=== PATIENT | male | born 1955 | race Caucasian/White ===

== ENCOUNTER 2017-10-26 06:39 | Day surgery (SDC) | payer OTHER ==
[2017-10-26] MEDS ORDERED: Lactated Ringers 1,000 ML IV SCH (07:00)
[2017-10-26] MEDS ORDERED: Propofol 200 MG/20 ML SDV ONE (08:32)
[2017-10-26] MEDS ORDERED: fentaNYL 100 MCG/2 ML SDV ONE (08:32)
[2017-10-26] MEDS ORDERED: Midazolam 1 MG/ML 2 ML SDV ONE (08:32)
--- NOTE | 2017-10-26 11:10 | OR ---
DATE OF PROCEDURE: 10/26/2017 PREOPERATIVE DIAGNOSIS: History of colon polyps. POSTOPERATIVE DIAGNOSES: Small transverse colon polyp, medium-sized cecal polyp, history of colon polyps. PROCEDURE PERFORMED: Colonoscopy to the cecum with biopsy resection of transverse colon polyp and then snare cautery polypectomy of cecal polyp. SURGEON: Nino Macdonald MD ANESTHESIA: IV anesthesia with monitored anesthesia care. INDICATION: This 62-year-old white male, former [employer] [place] [employer], is referred by the [facility] for a colonoscopy. He has had at least 2 prior colonoscopies, one of which had polyps in it. I counseled him for the procedure, including risks and alternatives, and he gave his informed consent to proceed. DESCRIPTION OF PROCEDURE: The patient was placed in the left lateral decubitus position. IV anesthesia was administered by the Anesthesia Service. Time-out was held. A rectal exam was performed, which was unremarkable. The flexible video Olympus colonoscope was introduced through his anus, up his rectum, out his colon, all way to the cecum. En route, in the transverse colon, we saw a small polyp, which was removed with a few bites of biopsy forceps. Once the cecum was reached, we encountered a polyp in the cecum. We initially biopsied this. This was too large to remove using this technique. A snare was passed about its base, it was elevated up away from the bowel wall and amputated as electrocautery was applied. We grasped the polyp with the biopsy forceps and brought it out of the cecum, so that we could aspirate up through the scope which was done. It was captured in a polyp trap. The scope was then withdrawn further with no other lesions noted. The scope was retroflexed in the rectum with the distal rectum appearing unremarkable. The scope was straightened and removed. He tolerated the procedure well. Nino Macdonald MD /[id number]
== END 2017-10-26 10:44 | disposition home or self-care (01) ==
LOC: JP.SDS 06:39
PROVIDERS: ATTEND Surgery
DX: Z12.11 Encounter for screening for malignant neoplasm of colon (principal); Z86.010 Personal history of colon polyps; D12.0 Benign neoplasm of cecum; K63.5 Polyp of colon; G47.33 Obstructive sleep apnea (adult) (pediatric); E11.9 Type 2 diabetes mellitus without complications; E66.9 Obesity, unspecified; Z88.8 Allergy status to other drugs, medicaments and biological substances
CPT/HCPCS: 45380; 45385; J2250; J2704; J3010; J7120; 88305

== ENCOUNTER 2020-10-10 06:57 | Observation (INO) | payer OTHER ==
[2020-10-10] MEDS ORDERED: Midazolam 1 MG/ML 2 ML SDV ONE (07:12)
[2020-10-10] MEDS ORDERED: fentaNYL 100 MCG/2 ML SDV ONE (07:12)
[2020-10-10] MEDS ORDERED: Propofol 200 MG/20 ML SDV ONE ×2 (07:12→08:50)
[2020-10-10] MEDS ORDERED: Dextrose 5%-Lactated Ringers 1,000 ML IV SCH (07:30)
--- NOTE | 2020-10-10 12:03 | CRLCT ---
Indication: Post colonoscopy abdominal pain. Technique: Multiple contiguous axial images were obtained from the lung bases through the symphysis pubis without intravenous contrast enhancement. Please note that all CT scans at this facility use dose modulation, iterative reconstruction, and/or weight-based dosing when appropriate to reduce radiation dose to as low as reasonably achievable. Comparison: None Findings: The heart is normal in size. No pericardial effusion is identified. Coronary artery calcifications are identified. The aorta is normal in caliber. The lung bases are clear. The unenhanced liver, spleen, pancreas, adrenals and kidneys are normal. No intrahepatic biliary ductal dilatation is identified. No hydronephrosis is identified. In the pelvis, thickening of the wall of the urinary bladder is identified. The prostate gland is enlarged. Paragraph The small and large bowel are normal in caliber. No free air or free fluid is identified within the abdomen or pelvis. No lytic or blastic lesions of the spine are identified. Impression: No acute findings of the abdomen or pelvis. Please note that all CT scans at this facility use dose modulation, iterative reconstruction, and/or weight-based dosing when appropriate to reduce radiation dose to as low as reasonably achievable. Dictated by Raven Carvajal MD @ Oct 10 2020 11:57AM Signed by Dr. Raven Carvajal @ Oct 10 2020 12:02PM
--- NOTE | 2020-10-10 14:55 | PCM.HP.2 ---
H&P History of Present Illness - General Date of Service: 10/10/20 Admit Problem/Dx: Admission Diagnosis/Problem Admission Diagnosis/Problem Fever Source of Information: Patient, Family, Provider, RN Notes Reviewed History Limitations: Reports: No Limitations - History of Present Illness Initial Comments - Free Text/Narative: Mr. Pang is a 65-year-old gentleman who was admitted as a direct admission to observation status through the critical care technician unit. Yesterday he received his second COVID-19 vaccination and also underwent a colonoscopy prep for colonoscopy today. Colonoscopy was performed and he did have a polyp removed. After the colonoscopy he experienced significant abdominal pain, CT scan of the abdomen was obtained and showed no evidence of free air or perforation. No other significant abnormalities were seen on CT scan. Following this he did have significant temperature elevation to 101.6 degrees. Laboratory tests have been obtained and he was found to have a mild to moderate elevation in white blood cell count as well as a mild elevation in CRP. Procalcitonin level was within normal range, as was the lactic acid level. Chest x-ray showed atelectasis but no evidence of obvious infiltrate and urinalysis is clear with no evidence of infection. On history and physical examination he denies any other symptoms of localized infection. He has noted headache associated with myalgias and some generalized weakness. Abdomen Pain Score (Numeric/FACES): 2 Muscle Aches Pain Score (Numeric/FACES): 4 - Related Data Allergies/Adverse Reactions: Allergies Allergy/AdvReac Type Severity Reaction Status Date / Time lisinopril Allergy Cannot Verified 10/10/20 07:20 Remember Home Medications: Home Meds Cholecalciferol (Vitamin D3) [Vitamin D3] 400 units PO DAILY 10/24/17 [History] Insulin Glarg,Human.Rec.Analog [Lantus Solostar] 54 units SUBCUT QPM 10/24/17 [History] Losartan [Cozaar] 100 mg PO BEDTIME 10/24/17 [History] Oxybutynin Chloride 5 mg PO BID 10/24/17 [History] Sertraline HCl 25 mg PO DAILY 10/24/17 [History] hydroCHLOROthiazide [Hydrochlorothiazide] 25 mg PO DAILY 10/24/17 [History] metFORMIN HCl [Metformin HCl] 1,000 mg PO BID 10/24/17 [History] Fluocinonide [Lidex 0.05% Top Soln] 1 applic TOP BID 10/07/20 [History] Insuln Asp Prot/Insulin Aspart [NovoLOG Mix 70-30] 11 - 24 units SQ BID 10/07/20 [History] Ketoconazole [Nizoral 2% Crm] 1 applic TOP .BIWEEKLY 10/07/20 [History] Terbinafine [LamISIL AT 1% Crm] 1 applic TOP WEEKLY 10/07/20 [History] Terbinafine [LamISIL] 250 mg PO WEEKLY 10/07/20 [History] fluorouraciL [Efudex 5% Cream] 1 applic TOP DAILY 10/07/20 [History] metroNIDAZOLE [Metrocream] 1 applic TOP BID 10/07/20 [History] Alogliptin Benzoate [Alogliptin] 12.5 mg PO DAILY 10/10/20 [History] Past Medical History HEENT History: Reports: Hard of Hearing Cardiovascular History: Reports: High Cholesterol, Hypertension Respiratory History: Reports: None Gastrointestinal History: Reports: Colon Polyp Genitourinary History: Reports: Prostate Disorder Musculoskeletal History: Reports: Fracture Neurological History: Reports: None Psychiatric History: Reports: Depression Endocrine/Metabolic History: Reports: Diabetes, Type II, IDDM, Obesity/BMI 30+ Hematologic History: Reports: None Immunologic History: Reports: None Oncologic (Cancer) History: Reports: Prostate Dermatologic History: Reports: None - Infectious Disease History Infectious Disease History: Reports: Chicken Pox, Measles, Mumps - Past Surgical History Head Surgeries/Procedures: Reports: None HEENT Surgical History: Reports: Other (See Below) Other HEENT Surgeries/Procedures: left ear surgery Cardiovascular Surgical History: Reports: None Respiratory Surgical History: Reports: None GI Surgical History: Reports: Colonoscopy, Hernia, Abdominal Male Surgical History: Reports: None Endocrine Surgical History: Reports: None Neurological Surgical History: Reports: None Musculoskeletal Surgical History: Reports: None Oncologic Surgical History: Reports: None Dermatological Surgical History: Reports: Skin Biopsy Social & Family History - Family History Family Medical History: No Pertinent Family History - Tobacco Use Tobacco Use Status *Q: Never Tobacco User - Caffeine Use Caffeine Use: Reports: Coffee - Recreational Drug Use Recreational Drug Use: No H&P Review of Systems - Review of Systems: Review Of Systems: See Below General: Reports: Fever, Malaise, Weakness, Fatigue, Decreased Appetite. Denies: Chills HEENT: Reports: Ear Pain, Headaches, Sore Throat. Denies: Sinus Congestion, Vi sual Changes Pulmonary: Reports: No Symptoms Cardiovascular: Reports: No Symptoms Gastrointestinal: Reports: Abdominal Pain, Distension. Denies: Constipation, Diarrhea, Difficulty Swallowing, Hematemesis, Hematochezia, Melena, Nausea, Vomiting Genitourinary: Reports: No Symptoms Musculoskeletal: Reports: Muscle Pain. Denies: Neck Pain, Back Pain, Joint Pain, Joint Swelling Skin: Reports: No Symptoms Psychiatric: Reports: No Symptoms Neurological: Reports: No Symptoms Hematologic/Lymphatic: Reports: No Symptoms Immunologic: Reports: No Symptoms Exam - Exam Exam: See Below - Vital Signs Vital Signs: Last Vital Signs Temp 100.2 F 10/10/20 13:35 Pulse 77 10/10/20 13:35 Resp 16 10/10/20 13:35 BP 131/66 10/10/20 13:35 Pulse Ox 96 10/10/20 13:35 Weight: 259 lb 6.4 oz - Exam Quality Assessment: DVT Prophylaxis General: Alert, Oriented, Cooperative, Mild Distress HEENT: Conjunctiva Clear, Hearing Intact, Normal Nasal Septum, Posterior Pharynx Clear, Pupils Equal. No: Mucosa Moist & [place] Neck: Supple, Trachea Midline, +2 Carotid Pulse wo Bruit Lungs: Clear to Auscultation, Normal Respiratory Effort Cardiovascular: Regular Rate, Regular Rhythm, Normal S1, Normal S2. No: Systolic Murmur, Diastolic Murmur GI/Abdominal Exam: Soft, No Organomegaly, Distended, Tender. No: Guarding, Rigid, Rebound Back Exam: Normal Inspection, Full Range of Motion Extremities: Non-Tender, No Pedal Edema Skin: Warm, Dry, Intact Neurological: Cranial Nerves Intact, Strength Equal Bilateral, Normal Speech, Normal Tone, Sensation Intact. No: Focal Deficit Neuro Extensive - Mental Status: Alert, Oriented x3, Normal Mood/Affect, Normal Cognition, Memory Intact - Patient Data Lab Results Last 24 hrs: Laboratory Results - last 24 hr 10/10/20 10/10/20 10/10/20 Range/Units 13:00 13:33 13:33 WBC 13.4 H (4.5-11.0) K/uL RBC 5.10 (4.30-5.90) M/uL Hgb 14.4 (12.0-15.0) g/dL Hct 44.6 (40.0-54.0) % MCV 88 (80-98) fL MCH 28 (27-31) pg MCHC 32 (32-36) % Plt Count 204 (150-400) K/uL Neut % (Auto) 90 H (36-66) % Lymph % (Auto) 3 L (24-44) % [place] % (Auto) 7 H (2-6) % Eos % (Auto) 0 L (2-4) % Baso % (Auto) 0 (0-1) % Sodium (140-148) mmol/L Potassium (3.6-5.2) mmol/L Chloride (100-108) mmol/L Carbon Dioxide (21-32) mmol/L Anion Gap (5.0-14.0) mmol/L BUN (7-18) mg/dL Creatinine (0.8-1.3) mg/dL Est Cr Clr Drug Dosing mL/min Estimated GFR (MDRD) (>60) Glucose (74-106) mg/dL Lactic Acid (0.4-2.0) mmol/L Calcium (8.5-10.1) mg/dL Magnesium (1.8-2.4) mg/dL Total Bilirubin (0.2-1.0) mg/dL AST (15-37) U/L ALT (12-78) U/L Alkaline Phosphatase (46-116) U/L Troponin I (0.000-0.056) ng/mL C-Reactive Protein (0.0-0.3) mg/dL Total Protein (6.4-8.2) g/dL Albumin (3.4-5.0) g/dL Globulin (2.3-3.5) g/dL Albumin/Globulin Ratio (1.2-2.2) Lipase 132 (73-393) U/L Procalcitonin < 0.05 ng/mL Urine Color (YELLOW) Urine Appearance (CLEAR) Urine pH (5.0-8.0) Ur Specific [place] (1.008-1.030) Urine Protein (NEGATIVE) mg/dL Urine Glucose (UA) (NEGATIVE) mg/dL Urine Ketones (NEGATIVE) mg/dL Urine Occult Blood (NEGATIVE) Urine Nitrite (NEGATIVE) Urine Bilirubin (NEGATIVE) Urine Urobilinogen (0.2-1.0) EU/dL Ur Leukocyte Esterase (NEGATIVE) Urine RBC (0-5) Urine WBC (0-5) Ur Epithelial Cells Amorphous Sediment Urine Bacteria Urine Mucus 10/10/20 10/10/20 10/10/20 Range/Units 13:33 13:33 13:50 WBC (4.5-11.0) K/uL RBC (4.30-5.90) M/uL Hgb (12.0-15.0) g/dL Hct (40.0-54.0) % MCV (80-98) fL MCH (27-31) pg MCHC (32-36) % Plt Count (150-400) K/uL Neut % (Auto) (36-66) % Lymph % (Auto) (24-44) % [place] % (Auto) (2-6) % Eos % (Auto) (2-4) % Baso % (Auto) (0-1) % Sodium 141 (140-148) mmol/L Potassium 5.4 H (3.6-5.2) mmol/L Chloride 103 (100-108) mmol/L Carbon Dioxide 26 (21-32) mmol/L Anion Gap 17.4 H (5.0-14.0) mmol/L BUN 20 H (7-18) mg/dL Creatinine 1.6 H (0.8-1.3) mg/dL Est Cr Clr Drug Dosing 44.53 mL/min Estimated GFR (MDRD) 44 L (>60) Glucose 184 H (74-106) mg/dL Lactic Acid 1.6 (0.4-2.0) mmol/L Calcium 9.0 (8.5-10.1) mg/dL Magnesium 1.9 (1.8-2.4) mg/dL Total Bilirubin 0.9 (0.2-1.0) mg/dL AST 20 (15-37) U/L ALT 32 (12-78) U/L Alkaline Phosphatase 65 (46-116) U/L Troponin I < 0.017 (0.000-0.056) ng/mL C-Reactive Protein 1.87 H (0.0-0.3) mg/dL Total Protein 7.7 (6.4-8.2) g/dL Albumin 4.0 (3.4-5.0) g/dL Globulin 3.7 H (2.3-3.5) g/dL Albumin/Globulin Ratio 1.1 L (1.2-2.2) Lipase (73-393) U/L Procalcitonin ng/mL Urine Color Yellow (YELLOW) Urine Appearance Slightly cloudy A (CLEAR) Urine pH 7.0 (5.0-8.0) Ur Specific [place] 1.025 (1.008-1.030) Urine Protein 30 H (NEGATIVE) mg/dL Urine Glucose (UA) 100 H (NEGATIVE) mg/dL Urine Ketones Negative (NEGATIVE) mg/dL Urine Occult Blood Trace-intact H (NEGATIVE) Urine Nitrite Negative (NEGATIVE) Urine Bilirubin Negative (NEGATIVE) Urine Urobilinogen 1.0 (0.2-1.0) EU/dL Ur Leukocyte Esterase Negative (NEGATIVE) Urine RBC 0-5 (0-5) Urine WBC 0-5 (0-5) Ur Epithelial Cells Rare Amorphous Sediment Not seen Urine Bacteria Not seen Urine Mucus Not seen Result Diagrams: 10/10/20 13:33 10/10/20 13:33 Sepsis Event Note - Focused Exam Vital Signs: Vital Signs Temp Temp Pulse Resp BP Pulse Ox 10/10/20 13:35 100.2 F 77 16 131/66 96 10/10/20 13:08 81 16 145/106 H 10/10/20 12:55 212.4 F H 81 16 152/86 H 10/10/20 12:29 94 L 10/10/20 12:24 81 16 124/67 10/10/20 12:17 101.6 F H 10/10/20 11:49 100.9 F H 83 18 143/75 H 97 10/10/20 11:34 100.8 F H 76 20 118/61 92 L 10/10/20 10:30 100.6 F 87 18 155/76 H 99 10/10/20 10:08 99.5 F 83 16 141/72 H 96 10/10/20 09:40 75 16 144/83 H 95 10/10/20 09:25 99.9 F 76 16 130/80 95 10/10/20 09:20 15 123/56 L 97 10/10/20 09:15 15 135/74 98 10/10/20 09:10 15 120/73 97 10/10/20 09:05 15 121/67 96 10/10/20 09:00 97 F 68 15 113/65 93 L 10/10/20 07:18 97.9 F 97 18 145/86 H 96 *Q Meaningful Use (ADM) - VTE Risk Assess *Q Each Risk Factor Represents 1 Point: Obesity ( BMI > 25 kg/m2) Total Score 1 Point Risk Factors: 1 Each Risk Factor Represents 2 Points: Age 60 - 74 Years Total Score 2 Point Risk Factors: 2 Each Risk Factor Represents 3 Points: None Total Score 3 Point Risk Factors: 0 Each Risk Factor Represents 5 Points: None Total Score 5 Point Risk Factors: 0 Venous Thromboembolism Risk Factor Score *Q: 3 Problem List Initiated/Reviewed/Updated: Yes Orders Last 24hrs: Active Orders 24 hr Category Date Time Status Patient Status Manage Transfer [TRANSFER] Routine ADT 10/10/20 14:42 Ordered Chest 1V Frontal [CR] Stat Exams 10/10/20 12:58 Taken Dextrose 5%-Lactated Ringers 1,000 ml Med 10/10/20 07:30 Active IV ASDIRECTED Resuscitation Status Routine Resus Stat 10/10/20 14:45 Ordered Medication Orders Dextrose/Lactated Ringer's (Dextrose 5%-Lactated Ringers) 1,000 mls @ 100 mls/hr IV ASDIRECTED TYRELL Last Admin: 10/10/20 07:52 Dose: 100 mls/hr Documented by: QUINN Assessment/Plan Comment:: ASSESSMENT AND PLAN FEVER-associated with increased abdominal pain and recent colonoscopy. CT scan of the abdomen pelvis was unremarkable showing no significant abnormalities. He did recently receive his second Covid injection yesterday. Current temperature elevation may be associated with this Covid injection his he also has other symptoms including myalgias, weakness, and headache. Laboratory tests and physical examination are unremarkable for other potential source of infection. -Admit to observation status for further monitoring -Follow-up labs in a.m. -No indication for antibiotic therapy at the present time TYPE 2 DIABETES MELLITUS -Continue outpatient medications and long-acting insulin -4 times daily glucometers -High-dose sliding scale Humalog PROSTATE CANCER MAINTENANCE ISSUES -DVT prophylaxis; SCUDs -GI prophylaxis; not indicated -[place] catheter; not indicated -Nutrition; consistent carbohydrate diet -Nicotine dependence; not required CODE STATUS-FULL CODE ADMISSION STATUS-this patient will be admitted to observation status, expect no more than a one night hospital stay for evaluation and management of problems as outlined above. DISPOSITION-anticipate discharge to home after the hospital stay. - Mortality Measure Prognosis:: Good
[2020-10-10] MEDS ORDERED: Glucose Gel 15 GM in 37.5 GM Tube PO PRN (15:10)
[2020-10-10] MEDS ORDERED: 50% Dextrose in Water 50 ML Syringe IV PRN (15:10)
[2020-10-10] MEDS ORDERED: Sodium Chloride 0.9% 10 ML Syringe FLUSH PRN (15:10)
[2020-10-10] MEDS ORDERED: Ondansetron 4 MG/2 ML SDV IV PRN (15:10)
[2020-10-10] MEDS ORDERED: Insulin Glargine,Human Rec. Analog 100 Units/ML 3 ML Pen SUBCUT SCH ×2 (17:00→21:00)
[2020-10-10] MEDS ORDERED: metFORMIN 500 MG Tab PO SCH (17:00)
[2020-10-10] MEDS: Acetaminophen 325 MG Tab PO PRN ×2 (17:36→21:24)
[2020-10-10] MEDS: METFORMIN 1000MG **PTOM PO SCH (18:00)
[2020-10-10] MEDS: INSULIN LISPRO 100 UNIT/ML SUBCUT SCH ×2 (18:33→21:29)
[2020-10-10] MEDS ORDERED: PRAVASTATIN 40 MG PO SCH (21:00)
[2020-10-10] MEDS ORDERED: SERTRALINE PO SCH (21:00)
[2020-10-10] MEDS ORDERED: ARIPIPRAZOLE 20 MG PO SCH (21:00)
[2020-10-10] MEDS ORDERED: Pravastatin 20 MG Tab PO SCH (21:00)
[2020-10-10] MEDS ORDERED: ARIPiprazole 10 MG Tab PO SCH (21:00)
[2020-10-10] MEDS ORDERED: LOSARTAN 100MG **PTOM PO SCH (21:00)
[2020-10-10] MEDS: GABAPENTIN 400 MG PO SCH (21:21)
[2020-10-10] MEDS: OXYBUTYNIN 5 MG PO SCH (21:22)
[2020-10-10] MEDS: TRESIBA 200 UNIT/ML SUBCUT SCH ×2 (21:30)
[2020-10-10] MEDS: oxyCODONE 5 MG Tab PO PRN (21:55)
[2020-10-11] MEDS: oxyCODONE 5 MG Tab PO PRN (02:58)
[2020-10-11] MEDS: Acetaminophen 325 MG Tab PO PRN ×2 (02:58→08:17)
[2020-10-11] MEDS: INSULIN LISPRO 100 UNIT/ML SUBCUT SCH (07:56)
[2020-10-11] MEDS: METFORMIN 1000MG **PTOM PO SCH (08:01)
[2020-10-11] MEDS: OXYBUTYNIN 5 MG PO SCH (08:04)
[2020-10-11] MEDS: GABAPENTIN 400 MG PO SCH (08:06)
[2020-10-11] MEDS ORDERED: Sertraline 50 MG Tab PO SCH (09:00)
[2020-10-11] MEDS ORDERED: ALOGLIPTIN 12.5 MG PO SCH (09:00)
[2020-10-11] MEDS ORDERED: Hydrochlorothiazide 25 MG **PTOM PO SCH (09:00)
[2020-10-11] MEDS ORDERED: Sertraline 25 MG Tab PO SCH (09:00)
--- NOTE | 2020-10-11 09:13 | PCM.DCSUM1 ---
Discharge Summary - Hospital Course Brief History: Mr. Pang is a 65-year-old gentleman who was admitted to observation status from healthcare social worker unit with fever, weakness, myalgias, and headache, secondary to recent COVID-19 vaccination. - Discharge Data Discharge Date: 10/11/20 Discharge Disposition: Home, Self-Care 01 Condition: Good - Referral to Home Health Primary Care Physician: PCP None - Discharge Diagnosis/Problem(s) (1) Fever after COVID-19 vaccination SNOMED Code(s): 745953456536937 ICD Code: R50.83 - POSTVACCINATION FEVER; T50.B95A - ADVERSE EFFECT OF OTHER VIRAL VACCINES, INITIAL ENCOUNTER Status: Acute Current Visit: Yes (2) Myalgia after COVID-19 vaccination SNOMED Code(s): 48059233 ICD Code: M79.10 - MYALGIA, UNSPECIFIED SITE; T50.B95A - ADVERSE EFFECT OF OTHER VIRAL VACCINES, INITIAL ENCOUNTER Status: Acute Current Visit: Yes - Patient Summary/Data Hospital Course: Mr. Pang is a 65-year-old gentleman who was admitted as a direct admission to observation status through the healthcare social worker unit. Yesterday he received his second COVID-19 vaccination and also underwent a colonoscopy prep for colonoscopy today. Colonoscopy was performed and he did have a polyp removed. After the colonoscopy he experienced significant abdominal pain, CT scan of the abdomen was obtained and showed no evidence of free air or perforation. No other significant abnormalities were seen on CT scan. Following this he did have significant temperature elevation to 101.6 degrees. Laboratory tests have been obtained and he was found to have a mild to moderate elevation in white blood cell count as well as a mild elevation in CRP. Procalcitonin level was within normal range, as was the lactic acid level. Chest x-ray showed atelectasis but no evidence of obvious infiltrate and urinalysis is clear with no evidence of infection. On history and physical examination he denies any other symptoms of localized infection. He has noted headache associated with myalgias and some generalized weakness. He was given further IV fluids on admission and did require further management of headache. He had mild further temperature elevations in the early evening and then no significant temperature after that. By the following morning he was feeling well with no myalgias weakness or headache. Vital signs were stable and he was afebrile. He tolerated a regular diet and his abdominal pain had resolved. Was felt very likely that most of his symptoms have been secondary to recent second COVID-19 vaccination. Activity will be as tolerated and he will resume his usual diet. - Patient Instructions Diet: Diabetic Diet Activity: As Tolerated - Discharge Plan *PRESCRIPTION DRUG MONITORING PROGRAM REVIEWED*: Not Applicable *COPY OF PRESCRIPTION DRUG MONITORING REPORT IN PATIENT HERLINDA: Not Applicable Home Medications: Home Meds Cholecalciferol (Vitamin D3) [Vitamin D3] 400 units PO DAILY 10/24/17 [History] Insulin Glarg,Human.Rec.Analog [Lantus Solostar] 54 units SUBCUT QPM 10/24/17 [History] Losartan [Cozaar] 100 mg PO BEDTIME 10/24/17 [History] Oxybutynin Chloride 5 mg PO BID 10/24/17 [History] Sertraline HCl 200 mg PO DAILY 10/24/17 [History] hydroCHLOROthiazide [Hydrochlorothiazide] 25 mg PO DAILY 10/24/17 [History] metFORMIN HCl [Metformin HCl] 1,000 mg PO BID 10/24/17 [History] Fluocinonide [Lidex 0.05% Top Soln] 1 applic TOP BID 10/07/20 [History] Insuln Asp Prot/Insulin Aspart [NovoLOG Mix 70-30] 11 - 24 units SQ BID 10/07/20 [History] Ketoconazole [Nizoral 2% Crm] 1 applic TOP .BIWEEKLY 10/07/20 [History] Terbinafine [LamISIL AT 1% Crm] 1 applic TOP WEEKLY 10/07/20 [History] Terbinafine [LamISIL] 250 mg PO WEEKLY 10/07/20 [History] fluorouraciL [Efudex 5% Cream] 1 applic TOP DAILY 10/07/20 [History] metroNIDAZOLE [Metrocream] 1 applic TOP BID 10/07/20 [History] ARIPiprazole [Aripiprazole] 20 mg PO BEDTIME 10/10/20 [History] Alogliptin Benzoate [Alogliptin] 12.5 mg PO DAILY 10/10/20 [History] Gabapentin [Neurontin] 400 mg PO BID 10/10/20 [History] Insulin Degludec [Tresiba Flextouch U-200] 40 unit SQ BEDTIME 10/10/20 [History] Pravastatin Sodium [Pravastatin (Pravachol)] 40 mg PO DAILY 10/10/20 [History] - Discharge Summary/Plan Comment DC Time >30 min.: No - Patient Data Vitals - Most Recent: Last Vital Signs Temp 98.1 F 10/11/20 07:00 Pulse 80 10/11/20 07:00 Resp 20 10/11/20 07:00 BP 124/64 10/11/20 07:00 Pulse Ox 93 L 10/11/20 07:00 Weight - Most Recent: 260 lb 4.8 oz I&O - Last 24 hours: Intake & Output 10/10/20 10/11/20 10/11/20 22:59 06:59 14:59 Intake Total 1340 Balance 1340 Lab Results - Last 24 hrs: Laboratory Results - last 24 hr 10/10/20 10/10/20 10/10/20 Range/Units 13:00 13:33 13:33 WBC 13.4 H (4.5-11.0) K/uL RBC 5.10 (4.30-5.90) M/uL Hgb 14.4 (12.0-15.0) g/dL Hct 44.6 (40.0-54.0) % MCV 88 (80-98) fL MCH 28 (27-31) pg MCHC 32 (32-36) % Plt Count 204 (150-400) K/uL Neut % (Auto) 90 H (36-66) % Lymph % (Auto) 3 L (24-44) % [place] % (Auto) 7 H (2-6) % Eos % (Auto) 0 L (2-4) % Baso % (Auto) 0 (0-1) % Sodium (140-148) mmol/L Potassium (3.6-5.2) mmol/L Chloride (100-108) mmol/L Carbon Dioxide (21-32) mmol/L Anion Gap (5.0-14.0) mmol/L BUN (7-18) mg/dL Creatinine (0.8-1.3) mg/dL Est Cr Clr Drug Dosing mL/min Estimated GFR (MDRD) (>60) Glucose (74-106) mg/dL POC Glucose (74-106) mg/dL Lactic Acid (0.4-2.0) mmol/L Calcium (8.5-10.1) mg/dL Magnesium (1.8-2.4) mg/dL Total Bilirubin (0.2-1.0) mg/dL AST (15-37) U/L ALT (12-78) U/L Alkaline Phosphatase (46-116) U/L Troponin I (0.000-0.056) ng/mL C-Reactive Protein (0.0-0.3) mg/dL Total Protein (6.4-8.2) g/dL Albumin (3.4-5.0) g/dL Globulin (2.3-3.5) g/dL Albumin/Globulin Ratio (1.2-2.2) Lipase 132 (73-393) U/L Procalcitonin < 0.05 ng/mL Urine Color (YELLOW) Urine Appearance (CLEAR) Urine pH (5.0-8.0) Ur Specific [place] (1.008-1.030) Urine Protein (NEGATIVE) mg/dL Urine Glucose (UA) (NEGATIVE) mg/dL Urine Ketones (NEGATIVE) mg/dL Urine Occult Blood (NEGATIVE) Urine Nitrite (NEGATIVE) Urine Bilirubin (NEGATIVE) Urine Urobilinogen (0.2-1.0) EU/dL Ur Leukocyte Esterase (NEGATIVE) Urine RBC (0-5) Urine WBC (0-5) Ur Epithelial Cells Amorphous Sediment Urine Bacteria Urine Mucus 10/10/20 10/10/20 10/10/20 Range/Units 13:33 13:33 13:50 WBC (4.5-11.0) K/uL RBC (4.30-5.90) M/uL Hgb (12.0-15.0) g/dL Hct (40.0-54.0) % MCV (80-98) fL MCH (27-31) pg MCHC (32-36) % Plt Count (150-400) K/uL Neut % (Auto) (36-66) % Lymph % (Auto) (24-44) % [place] % (Auto) (2-6) % Eos % (Auto) (2-4) % Baso % (Auto) (0-1) % Sodium 141 (140-148) mmol/L Potassium 5.4 H (3.6-5.2) mmol/L Chloride 103 (100-108) mmol/L Carbon Dioxide 26 (21-32) mmol/L Anion Gap 17.4 H (5.0-14.0) mmol/L BUN 20 H (7-18) mg/dL Creatinine 1.6 H (0.8-1.3) mg/dL Est Cr Clr Drug Dosing 44.53 mL/min Estimated GFR (MDRD) 44 L (>60) Glucose 184 H (74-106) mg/dL POC Glucose (74-106) mg/dL Lactic Acid 1.6 (0.4-2.0) mmol/L Calcium 9.0 (8.5-10.1) mg/dL Magnesium 1.9 (1.8-2.4) mg/dL Total Bilirubin 0.9 (0.2-1.0) mg/dL AST 20 (15-37) U/L ALT 32 (12-78) U/L Alkaline Phosphatase 65 (46-116) U/L Troponin I < 0.017 (0.000-0.056) ng/mL C-Reactive Protein 1.87 H (0.0-0.3) mg/dL Total Protein 7.7 (6.4-8.2) g/dL Albumin 4.0 (3.4-5.0) g/dL Globulin 3.7 H (2.3-3.5) g/dL Albumin/Globulin Ratio 1.1 L (1.2-2.2) Lipase (73-393) U/L Procalcitonin ng/mL Urine Color Yellow (YELLOW) Urine Appearance Slightly cloudy A (CLEAR) Urine pH 7.0 (5.0-8.0) Ur Specific [place] 1.025 (1.008-1.030) Urine Protein 30 H (NEGATIVE) mg/dL Urine Glucose (UA) 100 H (NEGATIVE) mg/dL Urine Ketones Negative (NEGATIVE) mg/dL Urine Occult Blood Trace-intact H (NEGATIVE) Urine Nitrite Negative (NEGATIVE) Urine Bilirubin Negative (NEGATIVE) Urine Urobilinogen 1.0 (0.2-1.0) EU/dL Ur Leukocyte Esterase Negative (NEGATIVE) Urine RBC 0-5 (0-5) Urine WBC 0-5 (0-5) Ur Epithelial Cells Rare Amorphous Sediment Not seen Urine Bacteria Not seen Urine Mucus Not seen 10/10/20 10/10/20 10/11/20 Range/Units 16:51 21:28 05:20 WBC (4.5-11.0) K/uL RBC (4.30-5.90) M/uL Hgb (12.0-15.0) g/dL Hct (40.0-54.0) % MCV (80-98) fL MCH (27-31) pg MCHC (32-36) % Plt Count (150-400) K/uL Neut % (Auto) (36-66) % Lymph % (Auto) (24-44) % [place] % (Auto) (2-6) % Eos % (Auto) (2-4) % Baso % (Auto) (0-1) % Sodium (140-148) mmol/L Potassium (3.6-5.2) mmol/L Chloride (100-108) mmol/L Carbon Dioxide (21-32) mmol/L Anion Gap (5.0-14.0) mmol/L BUN (7-18) mg/dL Creatinine (0.8-1.3) mg/dL Est Cr Clr Drug Dosing mL/min Estimated GFR (MDRD) (>60) Glucose (74-106) mg/dL POC Glucose 163 H 121 H (74-106) mg/dL Lactic Acid (0.4-2.0) mmol/L Calcium (8.5-10.1) mg/dL Magnesium (1.8-2.4) mg/dL Total Bilirubin (0.2-1.0) mg/dL AST (15-37) U/L ALT (12-78) U/L Alkaline Phosphatase (46-116) U/L Troponin I (0.000-0.056) ng/mL C-Reactive Protein (0.0-0.3) mg/dL Total Protein (6.4-8.2) g/dL Albumin (3.4-5.0) g/dL Globulin (2.3-3.5) g/dL Albumin/Globulin Ratio (1.2-2.2) Lipase (73-393) U/L Procalcitonin 0.09 ng/mL Urine Color (YELLOW) Urine Appearance (CLEAR) Urine pH (5.0-8.0) Ur Specific [place] (1.008-1.030) Urine Protein (NEGATIVE) mg/dL Urine Glucose (UA) (NEGATIVE) mg/dL Urine Ketones (NEGATIVE) mg/dL Urine Occult Blood (NEGATIVE) Urine Nitrite (NEGATIVE) Urine Bilirubin (NEGATIVE) Urine Urobilinogen (0.2-1.0) EU/dL Ur Leukocyte Esterase (NEGATIVE) Urine RBC (0-5) Urine WBC (0-5) Ur Epithelial Cells Amorphous Sediment Urine Bacteria Urine Mucus 10/11/20 10/11/20 10/11/20 Range/Units 05:20 05:20 07:52 WBC 10.4 (4.5-11.0) K/uL RBC 4.56 (4.30-5.90) M/uL Hgb 13.2 (12.0-15.0) g/dL Hct 40.2 (40.0-54.0) % MCV 88 (80-98) fL MCH 29 (27-31) pg MCHC 33 (32-36) % Plt Count 170 (150-400) K/uL Neut % (Auto) 81 H (36-66) % Lymph % (Auto) 8 L (24-44) % [place] % (Auto) 10 H (2-6) % Eos % (Auto) 1 L (2-4) % Baso % (Auto) 1 (0-1) % Sodium 141 (140-148) mmol/L Potassium 4.0 (3.6-5.2) mmol/L Chloride 103 (100-108) mmol/L Carbon Dioxide 26 (21-32) mmol/L Anion Gap 12.2 (5.0-14.0) mmol/L BUN 17 (7-18) mg/dL Creatinine 1.5 H (0.8-1.3) mg/dL Est Cr Clr Drug Dosing 47.50 mL/min Estimated GFR (MDRD) 47 L (>60) Glucose 138 H (74-106) mg/dL POC Glucose 151 H (74-106) mg/dL Lactic Acid (0.4-2.0) mmol/L Calcium 8.6 (8.5-10.1) mg/dL Magnesium (1.8-2.4) mg/dL Total Bilirubin (0.2-1.0) mg/dL AST (15-37) U/L ALT (12-78) U/L Alkaline Phosphatase (46-116) U/L Troponin I (0.000-0.056) ng/mL C-Reactive Protein (0.0-0.3) mg/dL Total Protein (6.4-8.2) g/dL Albumin (3.4-5.0) g/dL Globulin (2.3-3.5) g/dL Albumin/Globulin Ratio (1.2-2.2) Lipase (73-393) U/L Procalcitonin ng/mL Urine Color (YELLOW) Urine Appearance (CLEAR) Urine pH (5.0-8.0) Ur Specific [place] (1.008-1.030) Urine Protein (NEGATIVE) mg/dL Urine Glucose (UA) (NEGATIVE) mg/dL Urine Ketones (NEGATIVE) mg/dL Urine Occult Blood (NEGATIVE) Urine Nitrite (NEGATIVE) Urine Bilirubin (NEGATIVE) Urine Urobilinogen (0.2-1.0) EU/dL Ur Leukocyte Esterase (NEGATIVE) Urine RBC (0-5) Urine WBC (0-5) Ur Epithelial Cells Amorphous Sediment Urine Bacteria Urine Mucus Med Orders - Current: Current Medications Acetaminophen (Acetaminophen 325 Mg Tab) 650 mg PO Q4H PRN PRN Reason: Pain (Mild 1-3)/fever Last Admin: 10/11/20 08:17 Dose: 650 mg Documented by: Alogliptin Benzoate (Alogliptin 12.5 Mg Ptom) 12.5 mg PO DAILY [facility] Last Admin: 10/11/20 08:04 Dose: 12.5 mg Documented by: Dextrose (Glucose Gel 15 Gm In 37.5 Gm Tube) 15 gm PO ONETIME PRN PRN Reason: Hypoglycemia Dextrose/Water (50% Dextrose In Water 50 Ml Syringe) 50 ml IV ONETIME PRN PRN Reason: Hypoglycemia Gabapentin (Gabapentin 400 Mg Cap Own Med) 400 mg PO BID [facility] Last Admin: 10/11/20 08:06 Dose: 400 mg Documented by: Hydrochlorothiazide (Hydrochlorothiazide 25 Mg Ptom) 25 mg PO DAILY [facility] Last Admin: 10/11/20 08:05 Dose: 25 mg Documented by: Insulin Human Lispro (Insulin Lispro 100 Unit/Ml Ptom) 0 unit SUBCUT QIDACANDBED [facility]; Protocol Last Admin: 10/11/20 07:56 Dose: 3 units Documented by: Tresiba 200 Units/Ml (Pen Own Med) 0 units SUBCUT BEDTIME [facility] Last Admin: 10/10/20 21:30 Dose: 40 units Documented by: Ondansetron HCl (Ondansetron 4 Mg/2 Ml Sdv) 4 mg IV Q4H PRN PRN Reason: Nausea/Vomiting Oxybutynin Chloride (Oxybutynin 5 Mg Ptom) 5 mg PO BID [facility] Last Admin: 10/11/20 08:04 Dose: 5 mg Documented by: Oxycodone HCl (Oxycodone 5 Mg Tab) 5 mg PO Q4H PRN PRN Reason: Pain Last Admin: 10/11/20 02:58 Dose: 5 mg Documented by: Losartan 100mg (Ptom) 0 each PO BEDTIME [facility] Last Admin: 10/10/20 21:23 Dose: 1 each Documented by: Metformin 1000mg (Ptom) 0 each PO BIDMEALS [facility] Last Admin: 10/11/20 08:01 Dose: 1 each Documented by: Sertraline 100mg/Tab (Own Med) 0 each PO BEDTIME [facility] Last Admin: 10/10/20 21:24 Dose: 1 each Documented by: Pravastatin 40mg Tab (Own Med) 0 each PO BEDTIME [facility] Last Admin: 10/10/20 21:23 Dose: 1 each Documented by: Aripiprazole 20mg (Tab Own Med) 0 each PO BEDTIME [facility] Last Admin: 10/10/20 21:22 Dose: 1 each Documented by: Sodium Chloride (Sodium Chloride 0.9% 10 Ml Syringe) 10 ml FLUSH ASDIRECTED PRN PRN Reason: Keep Vein Open Discontinued Medications Aripiprazole (Aripiprazole 10 Mg Tab) 10 mg PO DAILY [facility] Fentanyl (Fentanyl 100 Mcg/2 Ml Sdv) Confirm Administered Dose 100 mcg .ROUTE .STK-MED ONE Stop: 10/10/20 07:13 Dextrose/Lactated Ringer's (Dextrose 5%-Lactated Ringers) 1,000 mls @ 100 mls/hr IV ASDIRECTED [facility] Last Admin: 10/10/20 07:52 Dose: 100 mls/hr Documented by: Insulin Glargine (Insulin Glargine,Human Rec. Analog 100 Units/Ml 3 Ml Pen) 54 units SUBCUT QPM [facility] Last Admin: 10/10/20 19:18 Dose: Not Given Documented by: Insulin Glargine (Insulin Glargine,Human Rec. Analog 100 Units/Ml 3 Ml Pen) 54 units SUBCUT BEDTIME [facility] Midazolam HCl (Midazolam 1 Mg/Ml 2 Ml Sdv) Confirm Administered Dose 2 mg .ROUTE .STK-MED ONE Stop: 10/10/20 07:13 Pravastatin Sodium (Pravastatin 20 Mg Tab) 20 mg PO DAILY [facility] Propofol (Propofol 200 Mg/20 Ml Sdv) Confirm Administered Dose 200 mg .ROUTE .STK-MED ONE Stop: 10/10/20 07:13 Propofol (Propofol 200 Mg/20 Ml Sdv) Confirm Administered Dose 200 mg .ROUTE .STK-MED ONE Stop: 10/10/20 08:51 Sertraline HCl (Sertraline 25 Mg Tab) 25 mg PO DAILY [facility] Sertraline HCl (Sertraline 50 Mg Tab) 200 mg PO DAILY [facility] - Exam Quality Assessment: Reports: DVT Prophylaxis General: Reports: Alert, Oriented, Cooperative, No Acute Distress Lungs: Reports: Clear to Auscultation, Normal Respiratory Effort Cardiovascular: Reports: Regular Rate, Regular Rhythm, No Murmurs GI/Abdominal Exam: Soft, Non-Tender, No Organomegaly, No Distention
--- NOTE | 2020-10-13 09:47 | CR ---
CHEST: Portable 10/10/2020 at 1:45 PM CLINICAL HISTORY:Fever COMPARISON:None FINDINGS: The heart size, pulmonary vascularity and hilar structures are normal. No infiltrate effusion or pneumothorax is seen. IMPRESSION: No acute cardiopulmonary process.
--- NOTE | 2020-10-13 12:27 | OR ---
DATE OF PROCEDURE: 10/10/2020 SURGEON: Daniele Karimi MD PREOPERATIVE DIAGNOSIS: History of colon polyps. POSTOPERATIVE DIAGNOSIS: No recurrent colon polyps. OPERATIVE PROCEDURE: Flexible colonoscopy. ANESTHESIA: IV sedation. INDICATIONS FOR PROCEDURE: This is a 65-year-old male presenting for followup colonoscopy. He does have a previous history of colon polyps. Plan is to proceed with colonoscopy with biopsies and polypectomy as indicated. Potential risks including bleeding and perforation were discussed, and the patient wishes to proceed. DETAILS OF THE PROCEDURE: The patient was taken to the operating room, placed in a left lateral decubitus position. IV sedation was administered, after which the initial digital rectal exam was performed and was unremarkable. Colonoscope was then passed into the rectum with retroflexion view revealing uncomplicated hemorrhoidal columns. The scope was then passed eventually to the level of the cecum. The prep was fair. There was a moderate amount of liquid stool present obscuring perhaps 10% of the mucosal surfaces. Other than that, there were no areas of diverticular disease. No areas of colitis. No recurrent polyps or other signs of neoplasia identified. The scope was then withdrawn and the above findings reconfirmed, and the procedure was concluded. The patient was taken to the recovery room in satisfactory condition. Postoperatively, the patient was noted to have some abdominal discomfort along with some low grade temperature. On questioning the patient, it become evident that he had just received his second COVID vaccination yesterday. The patient had a CT scan of the abdomen which was normal and this was seen by hospitalist, Dr. Carvalho, who elected to admit the patient for observation overnight. Daniele Karimi MD /[id number]
--- NOTE | 2020-10-13 13:26 | PN ---
DATE OF SERVICE: 10/11/2020 The patient has been comfortable overnight. Headache and fever disappeared. White count is normal. At this point, he probably had a reaction to the COVID shot given yesterday, and will likely be evaluated and discharged home later today per Dr. Carvalho. Daniele Karimi MD /[id number]
== END 2020-10-11 10:30 | disposition home or self-care (01) ==
LOC: JP.SDS 06:57 → JP.ICU 14:42
PROVIDERS: ADMIT Hospitalist; ATTEND Surgery
DX: R50.83 Postvaccination fever (principal); R53.1 Weakness; R51.9 Headache, unspecified; T50.B95A Adverse effect of other viral vaccines, initial encounter; M79.10 Myalgia, unspecified site; E11.9 Type 2 diabetes mellitus without complications; E78.00 Pure hypercholesterolemia, unspecified; I10 Essential (primary) hypertension; G47.33 Obstructive sleep apnea (adult) (pediatric); D72.829 Elevated white blood cell count, unspecified; R79.82 Elevated C-reactive protein (CRP); E66.9 Obesity, unspecified; Z68.39 Body mass index [BMI] 39.0-39.9, adult; Z86.010 Personal history of colon polyps; Z85.46 Personal history of malignant neoplasm of prostate; Z88.8 Allergy status to other drugs, medicaments and biological substances; Z79.899 Other long term (current) drug therapy; Z79.4 Long term (current) use of insulin; Z98.890 Other specified postprocedural states
CPT/HCPCS: 36415; 45378; 71045; 74150; 80048; 80053; 81001; 82947; 82962; 83605; 83690; 83735; 84145; 84484; 85025; 86140; 99217; 99219; A9270; G0378; J2250; J2704; J3010; J7121; J1815-GY

== ENCOUNTER 2020-12-31 14:41 | Emergency (ER) | payer OTHER ==
--- NOTE | 2020-12-31 15:58 | EDM.PDOC ---
ED HPI GENERAL MEDICAL PROBLEM - General Chief Complaint: Genitourinary Problem Stated Complaint: POSSIBLE UTI Time Seen by Provider: 12/31/20 15:00 Source of Information: Reports: Patient, Family History Limitations: Reports: No Limitations - History of Present Illness INITIAL COMMENTS - FREE TEXT/NARRATIVE: 65-year-old male who has a history of prostate cancer, prostate radiation with last treatment was just over a month ago. Over the past 2 to 3 days he has had some increased urinary frequency and dysuria, no fevers or chills or back pain. Denies nausea or vomiting. Onset: Gradual Duration: Day(s): (2 to 3 days) Associated Symptoms: Reports: No Other Symptoms - Related Data Allergies Allergy/AdvReac Type Severity Reaction Status Date / Time lisinopril Allergy Cannot Verified 12/31/20 14:59 Remember Home Meds: Home Meds Cholecalciferol (Vitamin D3) [Vitamin D3] 400 units PO DAILY 10/24/17 [History] Insulin Glarg,Human.Rec.Analog [Lantus Solostar] 54 units SUBCUT QPM 10/24/17 [History] Losartan [Cozaar] 100 mg PO BEDTIME 10/24/17 [History] Oxybutynin Chloride 5 mg PO BID 10/24/17 [History] Sertraline HCl 200 mg PO DAILY 10/24/17 [History] hydroCHLOROthiazide [Hydrochlorothiazide] 25 mg PO DAILY 10/24/17 [History] metFORMIN HCl [Metformin HCl] 1,000 mg PO BID 10/24/17 [History] Fluocinonide [Lidex 0.05% Top Soln] 1 applic TOP BID 10/07/20 [History] Insuln Asp Prot/Insulin Aspart [NovoLOG Mix 70-30] 11 - 24 units SQ TID 10/07/20 [History] Ketoconazole [Nizoral 2% Crm] 1 applic TOP .BIWEEKLY 10/07/20 [History] Terbinafine [LamISIL AT 1% Crm] 1 applic TOP WEEKLY 10/07/20 [History] fluorouraciL [Efudex 5% Cream] 1 applic TOP DAILY 10/07/20 [History] metroNIDAZOLE [Metrocream] 1 applic TOP BID 10/07/20 [History] ARIPiprazole [Aripiprazole] 20 mg PO BEDTIME 10/10/20 [History] Alogliptin Benzoate [Alogliptin] 12.5 mg PO DAILY 10/10/20 [History] Gabapentin [Neurontin] 400 mg PO BID 10/10/20 [History] Pravastatin Sodium [Pravastatin (Pravachol)] 40 mg PO DAILY 10/10/20 [History] Past Medical History HEENT History: Reports: Hard of Hearing Cardiovascular History: Reports: High Cholesterol, Hypertension Respiratory History: Reports: None Gastrointestinal History: Reports: Colon Polyp Genitourinary History: Reports: Prostate Disorder Musculoskeletal History: Reports: Fracture Neurological History: Reports: None Psychiatric History: Reports: Depression Endocrine/Metabolic History: Reports: Diabetes, Type II, IDDM, Obesity/BMI 30+ Hematologic History: Reports: None Immunologic History: Reports: None Oncologic (Cancer) History: Reports: Prostate Dermatologic History: Reports: None - Infectious Disease History Infectious Disease History: Reports: Chicken Pox, Measles, Mumps - Past Surgical History Head Surgeries/Procedures: Reports: None HEENT Surgical History: Reports: Other (See Below) Other HEENT Surgeries/Procedures: left ear surgery Cardiovascular Surgical History: Reports: None Respiratory Surgical History: Reports: None GI Surgical History: Reports: Colonoscopy, Hernia, Abdominal Endocrine Surgical History: Reports: None Neurological Surgical History: Reports: None Musculoskeletal Surgical History: Reports: None Oncologic Surgical History: Reports: None Dermatological Surgical History: Reports: Skin Biopsy Social & Family History - Family History Family Medical History: No Pertinent Family History - Tobacco Use Tobacco Use Status *Q: Never Tobacco User Second Hand Smoke Exposure: No - Caffeine Use Caffeine Use: Reports: Coffee - Recreational Drug Use Recreational Drug Use: No ED ROS GENERAL - Review of Systems Review Of Systems: See Below Constitutional: Denies: Fever, Chills, Malaise HEENT: Reports: No Symptoms Respiratory: Denies: Shortness of Breath Cardiovascular: Denies: Chest Pain GI/Abdominal: Denies: Abdominal Pain, Nausea, Vomiting : Reports: Dysuria, Frequency, Urgency Skin: Reports: No Symptoms Neurological: Denies: Headache ED EXAM, RENAL/ - Physical Exam Exam: See Below Exam Limited By: No Limitations General Appearance: Alert, No Apparent Distress Head: Atraumatic Respiratory/Chest: No Respiratory Distress, Lungs Clear Cardiovascular: Regular Rate, Rhythm GI/Abdominal: Soft, Non-Tender. No: Distended Back Exam: No: CVA Tenderness (R), CVA Tenderness (L) Psychiatric: Normal Affect, Normal Mood Skin Exam: Warm, Dry Course - Vital Signs Last Recorded V/S: Last Vital Signs Temp 97.7 F 12/31/20 15:03 Pulse 66 12/31/20 15:03 Resp 15 12/31/20 15:03 BP 138/77 12/31/20 15:03 Pulse Ox 97 12/31/20 15:03 - Orders/Labs/Meds Orders: Active Orders 24 hr Category Date Time Status CULTURE URINE [RM] Stat Lab 12/31/20 15:30 Received Labs: Laboratory Tests 12/31/20 Range/Units 15:09 Urine Color Yellow (YELLOW) Urine Appearance Turbid A (CLEAR) Urine pH 5.0 (5.0-8.0) Ur Specific [place] 1.020 (1.008-1.030) Urine Protein 30 H (NEGATIVE) mg/dL Urine Glucose (UA) 100 H (NEGATIVE) mg/dL Urine Ketones Negative (NEGATIVE) mg/dL Urine Occult Blood Moderate H (NEGATIVE) Urine Nitrite Negative (NEGATIVE) Urine Bilirubin Negative (NEGATIVE) Urine Urobilinogen 0.2 (0.2-1.0) EU/dL Ur Leukocyte Esterase Moderate H (NEGATIVE) Urine RBC 0-5 (0-5) Urine WBC Packed H (0-5) Ur Epithelial Cells Rare Amorphous Sediment Not seen Urine Bacteria Few Urine Mucus Not seen Urine Other - Re-Assessments/Exams Free Text/Narrative Re-Assessment/Exam: 12/31/20 17:19 UA was obtained which was positive, significant WBCs and bacteria were present. A culture was initiated and the patient was started on Macrobid 100 mg twice daily for 7 days. Encouraged to stay hydrated, and return if worsening such as vomiting the medication or increased pain. Otherwise we will be in touch with him with culture results if it warrants a change in treatment. Departure - Departure Time of Disposition: 16:33 Disposition: Home, Self-Care 01 Clinical Impression: UTI, Urinary tract infectious disease - Discharge Information Instructions: Urinary Tract Infection, Adult Referrals: [facility] [Other] Forms: ED Department Discharge Additional Instructions: Take antibiotic twice a day for a full week as prescribed. Stay hydrated, and you should feel improvement within the next 24 to 48 hours. If worsening such as fever, vomiting the medication, or increased pain return anytime. We will contact you if your urine culture result warrants a change in medication. Sepsis Event Note (ED) - Evaluation Sepsis Screening Result: No Definite Risk - Focused Exam Vital Signs: Vital Signs Temp Pulse Resp BP Pulse Ox 12/31/20 15:03 97.7 F 66 15 138/77 97 12/31/20 14:58 97.7 F 66 15 138/77 97 - My Orders Last 24 Hours: My Active Orders 12/31/20 15:30 CULTURE URINE [RM] Stat - Assessment/Plan Last 24 Hours: My Active Orders 12/31/20 15:30 CULTURE URINE [RM] Stat
== END 2020-12-31 16:33 | disposition home or self-care (01) ==
LOC: JP.ED 14:41
DX: N39.0 Urinary tract infection, site not specified (principal); E11.9 Type 2 diabetes mellitus without complications; E66.9 Obesity, unspecified; E78.00 Pure hypercholesterolemia, unspecified; I10 Essential (primary) hypertension; Z88.8 Allergy status to other drugs, medicaments and biological substances; Z79.4 Long term (current) use of insulin; Z68.39 Body mass index [BMI] 39.0-39.9, adult
CPT/HCPCS: 81001; 87086; 87088; 87186; 99283

== ENCOUNTER 2021-05-27 14:43 | Emergency (ER) | payer OTHER ==
[2021-05-27] MEDS ORDERED: Sodium Chloride 0.9% 10 ML Syringe FLUSH PRN (15:17)
--- NOTE | 2021-05-27 15:20 | EDM.PDOC ---
ED HPI GENERAL MEDICAL PROBLEM - General Chief Complaint: Respiratory Problem Stated Complaint: SOB, CHILLS Time Seen by Provider: 05/27/21 15:07 Source of Information: Reports: Patient, RN Notes Reviewed History Limitations: Reports: No Limitations - History of Present Illness INITIAL COMMENTS - FREE TEXT/NARRATIVE: 66-year-old gentleman presents emergency department today complaint of chills shortness of breath, he recently underwent a preoperative evaluation yesterday at which time he was given, Covid booster, annual flu shot and this Shingrix vaccine all at the same time, he now has developed some shortness of breath body aches fevers and chills and is found to be in atrial fibrillation which she has never had before. At rest his heart rate is around 90s however with any amount of exertion he will go up into the 120-130 range - Related Data Allergies Allergy/AdvReac Type Severity Reaction Status Date / Time lisinopril Allergy Cannot Verified 05/27/21 14:50 Remember Home Meds: Home Meds Cholecalciferol (Vitamin D3) [Vitamin D3] 400 units PO DAILY 10/24/17 [History] Losartan [Cozaar] 100 mg PO BEDTIME 10/24/17 [History] Oxybutynin Chloride 5 mg PO BID 10/24/17 [History] Sertraline HCl 200 mg PO DAILY 10/24/17 [History] hydroCHLOROthiazide [Hydrochlorothiazide] 25 mg PO DAILY 10/24/17 [History] metFORMIN HCl [Metformin HCl] 1,000 mg PO BID 10/24/17 [History] Insuln Asp Prot/Insulin Aspart [NovoLOG Mix 70-30] 15 units SQ BID 10/07/20 [History] ARIPiprazole [Aripiprazole] 20 mg PO BEDTIME 10/10/20 [History] Gabapentin [Neurontin] 400 mg PO BID 10/10/20 [History] Aspirin [Ecotrin EC] 81 mg PO DAILY 01/28/21 [History] Alogliptin Benzoate [Alogliptin] 12.5 mg PO DAILY 01/29/21 [History] Pravastatin [Pravachol] 40 mg PO DAILY 01/29/21 [History] Insulin Glarg,Human.Rec.Analog [Lantus Solostar] 40 units SQ BEDTIME 05/27/21 [History] Past Medical History HEENT History: Reports: Hard of Hearing Cardiovascular History: Reports: High Cholesterol, Hypertension Gastrointestinal History: Reports: Colon Polyp Genitourinary History: Reports: Prostate Disorder Musculoskeletal History: Reports: Fracture Psychiatric History: Reports: Depression Endocrine/Metabolic History: Reports: Diabetes, Type II, IDDM, Obesity/BMI 30+ Oncologic (Cancer) History: Reports: Prostate - Infectious Disease History Infectious Disease History: Reports: Chicken Pox, Measles, Mumps - Past Surgical History Head Surgeries/Procedures: Reports: None HEENT Surgical History: Reports: Other (See Below) Other HEENT Surgeries/Procedures: left ear surgery Cardiovascular Surgical History: Reports: None Respiratory Surgical History: Reports: None GI Surgical History: Reports: Colonoscopy, Hernia, Abdominal Male Surgical History: Reports: None Endocrine Surgical History: Reports: None Neurological Surgical History: Reports: None Musculoskeletal Surgical History: Reports: None Oncologic Surgical History: Reports: None Dermatological Surgical History: Reports: Skin Biopsy Social & Family History - Family History Family Medical History: No Pertinent Family History - Tobacco Use Tobacco Use Status *Q: Never Tobacco User - Caffeine Use Caffeine Use: Reports: Coffee - Recreational Drug Use Recreational Drug Use: No ED ROS GENERAL - Review of Systems Review Of Systems: See Below Constitutional: Reports: Fever, Weakness, Fatigue HEENT: Reports: No Symptoms Respiratory: Reports: Shortness of Breath Cardiovascular: Reports: Dyspnea on Exertion, Palpitations GI/Abdominal: Reports: No Symptoms ED EXAM, GENERAL - Physical Exam Exam: See Below Exam Limited By: No Limitations General Appearance: Alert, WD/WN, No Apparent Distress Respiratory/Chest: No Respiratory Distress, Lungs Clear, Normal Breath Sounds, No Accessory Muscle Use, Chest Non-Tender Cardiovascular: Irregularly Irregular GI/Abdominal: Soft, Non-Tender #1 Interpretation EKG Date: 05/27/21 Time: 15:56 Rhythm: A-Fib K[place]: Normal P-Wave: Absent QRS: Normal ST-T: Normal QT: Normal Comparison: NA - No Prior EKG #2 Interpretation EKG Date: 05/27/21 Time: 18:21 Rhythm: NSR Kula: Normal P-Wave: Present QRS: Normal ST-T: Normal QT: Normal Comparison: Change From Previous EKG Course - Vital Signs Last Recorded V/S: Last Vital Signs Temp 98.6 F 05/27/21 14:49 Pulse 85 05/27/21 17:08 Resp 26 H 05/27/21 17:08 BP 140/69 05/27/21 17:08 Pulse Ox 94 L 05/27/21 17:08 - Orders/Labs/Meds Orders: Active Orders 24 hr Category Date Time Status Cardiac Monitoring [RC] .As Directed Care 05/27/21 15:16 Active Peripheral IV Care [RC] . DIRECTED Care 05/27/21 15:17 Active Sodium Chloride 0.9% [Saline Flush] Med 05/27/21 15:17 Active 10 ml FLUSH ASDIRECTED PRN Peripheral IV Insertion Adult [OM.PC] Urgent Oth 05/27/21 15:17 Ordered EKG 12 Lead [EK] Stat Ther 05/27/21 15:16 Ordered Medication Orders Sodium Chloride (Sodium Chloride 0.9% 10 Ml Syringe) 10 ml FLUSH ASDIRECTED PRN PRN Reason: Keep Vein Open Labs: Laboratory Tests 05/27/21 05/27/21 05/27/21 Range/Units 15:32 15:32 15:32 WBC 12.3 H (4.5-11.0) K/uL RBC 4.99 (4.30-5.90) M/uL Hgb 14.6 (12.0-15.0) g/dL Hct 42.5 (40.0-54.0) % MCV 85 (80-98) fL MCH 29 (27-31) pg MCHC 34 (32-36) % Plt Count 189 (150-400) K/uL Neut % (Auto) 85.5 H (36-66) % Lymph % (Auto) 3.4 L (24-44) % [place] % (Auto) 10.4 H (2-6) % Eos % (Auto) 0.2 L (2-4) % Baso % (Auto) 0.5 (0-1) % Sodium 134 L (140-148) mmol/L Potassium 4.2 (3.6-5.2) mmol/L Chloride 100 (100-108) mmol/L Carbon Dioxide 23 (21-32) mmol/L Anion Gap 15.2 H (5.0-14.0) mmol/L BUN 27 H D (7-18) mg/dL Creatinine 1.4 H (0.8-1.3) mg/dL Est Cr Clr Drug Dosing 50.21 mL/min Estimated GFR (MDRD) 51 L (>60) Glucose 166 H (74-106) mg/dL Lactic Acid 1.8 (0.4-2.0) mmol/L Calcium 8.6 (8.5-10.1) mg/dL Total Bilirubin 0.8 (0.2-1.0) mg/dL AST 17 (15-37) U/L ALT 27 (12-78) U/L Alkaline Phosphatase 61 (46-116) U/L Troponin I High Sens 7.8 (<=60.3) pg/mL NT-Pro-B Natriuret Pep 2457 H (5-125) pg/mL Total Protein 7.0 (6.4-8.2) g/dL Albumin 3.6 (3.4-5.0) g/dL Globulin 3.4 (2.3-3.5) g/dL Albumin/Globulin Ratio 1.1 L (1.2-2.2) SARS CoV-2 RNA Rapid MATT 05/27/21 Range/Units 16:04 WBC (4.5-11.0) K/uL RBC (4.30-5.90) M/uL Hgb (12.0-15.0) g/dL Hct (40.0-54.0) % MCV (80-98) fL MCH (27-31) pg MCHC (32-36) % Plt Count (150-400) K/uL Neut % (Auto) (36-66) % Lymph % (Auto) (24-44) % [place] % (Auto) (2-6) % Eos % (Auto) (2-4) % Baso % (Auto) (0-1) % Sodium (140-148) mmol/L Potassium (3.6-5.2) mmol/L Chloride (100-108) mmol/L Carbon Dioxide (21-32) mmol/L Anion Gap (5.0-14.0) mmol/L BUN (7-18) mg/dL Creatinine (0.8-1.3) mg/dL Est Cr Clr Drug Dosing mL/min Estimated GFR (MDRD) (>60) Glucose (74-106) mg/dL Lactic Acid (0.4-2.0) mmol/L Calcium (8.5-10.1) mg/dL Total Bilirubin (0.2-1.0) mg/dL AST (15-37) U/L ALT (12-78) U/L Alkaline Phosphatase (46-116) U/L Troponin I High Sens (<=60.3) pg/mL NT-Pro-B Natriuret Pep (5-125) pg/mL Total Protein (6.4-8.2) g/dL Albumin (3.4-5.0) g/dL Globulin (2.3-3.5) g/dL Albumin/Globulin Ratio (1.2-2.2) SARS CoV-2 RNA Rapid MATT Negative Meds: Medications Generic Name Dose Route Start Last Admin Trade Name Freq PRN Reason Stop Dose Admin Sodium Chloride 10 ml 05/27/21 15:17 Sodium Chloride 0.9% 10 Ml Syringe FLUSH ASDIRECTED PRN Keep Vein Open Discontinued Medications Generic Name Dose Route Start Last Admin Trade Name Freq PRN Reason Stop Dose Admin Metoprolol Tartrate 25 mg 05/27/21 16:02 05/27/21 16:08 Metoprolol Tartrate 25 Mg Tab PO 05/27/21 16:03 25 mg ONETIME ONE Administration Propofol Confirm 05/27/21 18:18 Propofol 200 Mg/20 Ml Sdv Administered 05/27/21 18:19 Dose 200 mg .ROUTE .STK-MED ONE - Re-Assessments/Exams Free Text/Narrative Re-Assessment/Exam: 05/27/21 17:03 Did go for a walk in the emergency room hallway while he was monitored his heart rate he had 135 he felt dizzy felt short of breath got it back to bed he recovered but still remained in atrial fibrillation Departure - Departure Time of Disposition: 18:33 Disposition: Home, Self-Care 01 Condition: Fair Clinical Impression: Atrial fibrillation with RVR - Discharge Information Instructions: Atrial Fibrillation Referrals: Karyn Morgan MD [Primary Care Provider] - Forms: ED Department Discharge Additional Instructions: Recommend starting an aspirin daily, recommend follow-up with your primary care in the next 3 to 5 days for reevaluation to discuss further anticoagulation and atrial fibrillation follow-up which may include an echocardiogram and visit with cardiology, call or return to the emergency department worsening of symptoms Sepsis Event Note (ED) - Evaluation Sepsis Screening Result: No Definite Risk - Focused Exam Vital Signs: Vital Signs Temp Pulse Pulse Resp BP BP Pulse Ox 05/27/21 17:08 85 26 H 140/69 94 L 05/27/21 16:08 95 19 139/73 139/73 94 L 05/27/21 15:34 88 17 143/75 H 96 05/27/21 14:49 98.6 F 98 20 150/67 H 97 - My Orders Last 24 Hours: My Active Orders 05/27/21 15:16 Cardiac Monitoring [RC] .As Directed EKG 12 Lead [EK] Stat 05/27/21 15:17 Peripheral IV Care [RC] . DIRECTED Sodium Chloride 0.9% [Saline Flush] 10 ml FLUSH ASDIRECTED PRN Peripheral IV Insertion Adult [OM.PC] Urgent - Assessment/Plan Last 24 Hours: My Active Orders 05/27/21 15:16 Cardiac Monitoring [RC] .As Directed EKG 12 Lead [EK] Stat 05/27/21 15:17 Peripheral IV Care [RC] . DIRECTED Sodium Chloride 0.9% [Saline Flush] 10 ml FLUSH ASDIRECTED PRN Peripheral IV Insertion Adult [OM.PC] Urgent Plan: Assessment Acuity = acute Site and laterality = atrial fibrillation with rapid ventricular response during exertion you can have Etiology = possibly related to Covid booster, influenza shot and Shingrix shot all at the same time Manifestations = A. fib now resolved Location of injury = Home Lab values = WBC slightly elevated 12.3 consistent leukocytosis, creatinine elevated 1.4 consistent chronic renal failure stage G3 a lactic acid normal 1.8 BNP elevated to 457 consistent with fluid overload type pattern Covid was negative initial EKG demonstrates atrial fibrillation status post cardioversion reveals a sinus rhythm, chest x-ray no acute process Plan I did discuss with him his chads 2 score recommend anticoagulation at this time however he was going to wait to follow-up with his primary care recommend at least taking a baby aspirin. The majority of his symptoms did improve after cardioversion and follow-up with his primary care next 3 to 5 days for reevaluation This note was dictated using [employer] voice recognition software please call with any questions on syntax or grammar. Cardioversion - Cardioversion Procedure Time of Cardioversion: 18:21 Indication: Unstable Patient Counseled: Yes Informed Consent Obtained: Yes Preparation: IV Access, Airway Management Equipment, Supplemental Oxygen, Monitor, Reversal Agents Available, Other Pre-Procedure Sedation: Propofol Cardioversion Energy: 200J Sync (Nausea) Mode: Biphasic Successful: Yes Number of Attempts: 1 Patient Condition Post Cardioversion: Improved Post Cardioversion EKG Reviewed: Yes
--- NOTE | 2021-05-27 15:53 | CRLCR ---
For Patients: As a result of the Century Cures Act, medical imaging exams and procedure reports are released immediately into your electronic medical record. You may view this report before your referring provider. If you have questions, please contact your health care provider. INDICATION: Chest pain. TECHNIQUE: Chest 1 views. COMPARISON: October 10, 2020. FINDINGS: Cardiovascular and mediastinum: Heart size and vasculature are normal in caliber and appearance. Lungs and pleural spaces: Lungs are clear. No sign of infiltrate or mass. No sign of pleural effusion. No pneumothorax. Bones and soft tissues: No significant findings. IMPRESSION: No acute findings and no significant changes from the prior exam. Dictated by Thanh Elliott MD @ 05/27/2021 3:51:19 PM (Electronically Signed)
[2021-05-27] MEDS ORDERED: Metoprolol Tartrate 25 MG Tab PO ONE (16:02)
[2021-05-27] MEDS ORDERED: Propofol 200 MG/20 ML SDV ONE (18:18)
== END 2021-05-27 19:14 | disposition home or self-care (01) ==
LOC: JP.ED 14:43
DX: I48.91 Unspecified atrial fibrillation (principal); E78.00 Pure hypercholesterolemia, unspecified; I10 Essential (primary) hypertension; E11.9 Type 2 diabetes mellitus without complications; E66.9 Obesity, unspecified; Z68.41 Body mass index [BMI] 40.0-44.9, adult; Z88.8 Allergy status to other drugs, medicaments and biological substances; Z79.899 Other long term (current) drug therapy; Z79.4 Long term (current) use of insulin; Z79.82 Long term (current) use of aspirin; Z20.822 Contact with and (suspected) exposure to COVID-19
CPT/HCPCS: 36415; 71045; 80053; 83605; 83880; 84484; 85025; 87635; 93005; 99285; A9270; J2704; U0002

== ENCOUNTER 2021-07-27 05:44 | Inpatient (IN) | payer OTHER ==
[2021-07-27] MEDS ORDERED: Lactated Ringers 1,000 ML IV SCH (06:00)
[2021-07-27] MEDS ORDERED: Nozin Nasal Sanitizer NASBOTH ONE (06:00)
[2021-07-27] MEDS ORDERED: Bupivacaine 0.5% 30 ML SDV ONE ×2 (06:34→08:21)
[2021-07-27] MEDS ORDERED: fentaNYL 100 MCG/2 ML SDV ONE ×2 (07:21→08:40)
[2021-07-27] MEDS ORDERED: Propofol 200 MG/20 ML SDV ONE ×2 (07:21→07:30)
[2021-07-27] MEDS ORDERED: Midazolam 1 MG/ML 2 ML SDV ONE (07:21)
[2021-07-27] MEDS ORDERED: ceFAZolin 2 GM in Premix Bag 1 BAG IV ONE (07:30)
[2021-07-27] MEDS ORDERED: HYDROmorphone 0.5 MG/0.5 ML Syringe IVPUSH PRN (09:31)
[2021-07-27] MEDS ORDERED: Magnesium Hydroxide 400 MG/5 ML Susp 30 ML Cup PO PRN (09:31)
[2021-07-27] MEDS ORDERED: Ondansetron 4 MG/2 ML SDV IVPUSH PRN (09:31)
[2021-07-27] MEDS ORDERED: FLUOROURACIL TOP PRN (09:38)
[2021-07-27] MEDS ORDERED: METRONIDAZOLE TOP PRN (09:38)
[2021-07-27] MEDS ORDERED: Glucagon,Human Recombinant 1 MG Vial IM PRN (09:38)
[2021-07-27] MEDS ORDERED: TERBINAFINE HCL TOP PRN (09:38)
[2021-07-27] MEDS ORDERED: 50% Dextrose in Water 50 ML Syringe IVPUSH PRN (09:38)
[2021-07-27] MEDS ORDERED: FLUOCINONIDE 0.05% TOP SCH (09:45)
[2021-07-27] MEDS: Acetaminophen 325 MG Tab PO SCH ×3 (10:46→22:56)
[2021-07-27] MEDS: Ketorolac 30 MG/ML SDV IVPUSH SCH ×2 (10:47→18:20)
[2021-07-27] MEDS: Sodium Chloride 0.9% 1,000 ML IV SCH ×2 (11:04→19:39)
[2021-07-27] MEDS: Insulin Lispro Protamine/Lispro 75-25 100 Units/ML 10 ML Vial SUBCUT SCH ×2 (12:02→17:31)
[2021-07-27] MEDS: traMADol 50 MG Tab PO PRN ×2 (12:18→16:45)
[2021-07-27] MEDS: ceFAZolin 1 GM in Premix Bag 1 BAG IV SCH ×2 (13:56→22:55)
[2021-07-27] MEDS: oxyCODONE 5 MG Tab PO PRN ×2 (15:50→20:51)
[2021-07-27] MEDS: metFORMIN 500 MG Tab PO SCH (17:33)
[2021-07-27] MEDS: Nozin Nasal Sanitizer NASBOTH SCH (20:39)
[2021-07-27] MEDS: ARIPiprazole 10 MG Tab PO SCH (20:41)
[2021-07-27] MEDS: Docusate Sodium 100 MG Cap PO SCH (20:42)
[2021-07-27] MEDS: Losartan 25 MG Tab PO SCH (20:42)
[2021-07-27] MEDS: Oxybutynin 5 MG Tab PO SCH (20:43)
[2021-07-27] MEDS: Pravastatin 20 MG Tab PO SCH (20:43)
[2021-07-27] MEDS: Gabapentin 400 MG Cap PO SCH (20:43)
[2021-07-27] MEDS: Aspirin 325 MG Tab.EC PO SCH (20:43)
[2021-07-27] MEDS: Insulin Glargine,Human Rec. Analog 100 Units/ML 3 ML Pen SUBCUT SCH (20:53)
[2021-07-28] MEDS: Ketorolac 30 MG/ML SDV IVPUSH SCH (02:32)
[2021-07-28] MEDS: Sodium Chloride 0.9% 1,000 ML IV SCH (04:09)
[2021-07-28] MEDS: ceFAZolin 1 GM in Premix Bag 1 BAG IV SCH (05:37)
[2021-07-28] MEDS: Acetaminophen 325 MG Tab PO SCH ×5 (05:37→22:49)
[2021-07-28] MEDS: traMADol 50 MG Tab PO PRN ×2 (07:16→15:50)
[2021-07-28] MEDS: metFORMIN 500 MG Tab PO SCH ×2 (07:18→17:19)
[2021-07-28] MEDS: Insulin Lispro Protamine/Lispro 75-25 100 Units/ML 10 ML Vial SUBCUT SCH ×3 (07:22→17:19)
[2021-07-28] MEDS: oxyCODONE 5 MG Tab PO PRN ×4 (08:29→22:49)
[2021-07-28] MEDS: Hydrochlorothiazide 25 MG Tab PO SCH (09:05)
[2021-07-28] MEDS: Sertraline 25 MG Tab PO SCH (09:05)
[2021-07-28] MEDS: Gabapentin 400 MG Cap PO SCH ×2 (09:05→20:20)
[2021-07-28] MEDS: Celecoxib 200 MG Cap PO SCH ×2 (09:05→20:18)
[2021-07-28] MEDS: Aspirin 325 MG Tab.EC PO SCH ×2 (09:05→20:20)
[2021-07-28] MEDS: Terbinafine 250 MG Tab PO SCH (09:05)
[2021-07-28] MEDS: Docusate Sodium 100 MG Cap PO SCH ×2 (09:05→20:19)
[2021-07-28] MEDS: Nozin Nasal Sanitizer NASBOTH SCH ×2 (09:05→20:18)
[2021-07-28] MEDS: Oxybutynin 5 MG Tab PO SCH ×2 (09:06→20:19)
[2021-07-28] MEDS: Pravastatin 20 MG Tab PO SCH (20:18)
[2021-07-28] MEDS: ARIPiprazole 10 MG Tab PO SCH (20:18)
[2021-07-28] MEDS: Losartan 25 MG Tab PO SCH (20:19)
[2021-07-28] MEDS: Insulin Glargine,Human Rec. Analog 100 Units/ML 3 ML Pen SUBCUT SCH (20:22)
[2021-07-29] MEDS: Acetaminophen 325 MG Tab PO SCH ×2 (04:23→11:14)
[2021-07-29] MEDS: oxyCODONE 5 MG Tab PO PRN ×2 (04:23→13:16)
[2021-07-29] MEDS: traMADol 50 MG Tab PO PRN (07:41)
[2021-07-29] MEDS: metFORMIN 500 MG Tab PO SCH (07:42)
[2021-07-29] MEDS: Insulin Lispro Protamine/Lispro 75-25 100 Units/ML 10 ML Vial SUBCUT SCH ×2 (07:45→11:33)
[2021-07-29] MEDS: Terbinafine 250 MG Tab PO SCH (09:02)
[2021-07-29] MEDS: Docusate Sodium 100 MG Cap PO SCH (09:02)
[2021-07-29] MEDS: Sertraline 25 MG Tab PO SCH (09:02)
[2021-07-29] MEDS: Oxybutynin 5 MG Tab PO SCH (09:02)
[2021-07-29] MEDS: Hydrochlorothiazide 25 MG Tab PO SCH (09:02)
[2021-07-29] MEDS: Gabapentin 400 MG Cap PO SCH (09:02)
[2021-07-29] MEDS: Nozin Nasal Sanitizer NASBOTH SCH (09:02)
[2021-07-29] MEDS ORDERED: Rivaroxaban 10 MG Tab PO SCH (17:00)
== END 2021-07-29 13:55 | disposition home or self-care (01) | DRG 470 ==
LOC: JP.SDS 05:44 → JP.MS 09:31 → JP.SDS 07-28 12:01
PROVIDERS: ADMIT Specialist; ATTEND Specialist
PROC: 0SRC0L9 Replacement of Right Knee Joint with Medial Unicondylar Synthetic Substitute, Cemented, Open Approach (ICD-10-PCS; principal; 2021-07-27)
DX: M17.11 Unilateral primary osteoarthritis, right knee (principal); Z68.41 Body mass index [BMI] 40.0-44.9, adult; I48.0 Paroxysmal atrial fibrillation; C61 Malignant neoplasm of prostate; K63.5 Polyp of colon; F39 Unspecified mood [affective] disorder; D64.89 Other specified anemias; R32 Unspecified urinary incontinence; E55.9 Vitamin D deficiency, unspecified; E78.5 Hyperlipidemia, unspecified; E66.9 Obesity, unspecified; E11.9 Type 2 diabetes mellitus without complications; Z98.890 Other specified postprocedural states; Z79.4 Long term (current) use of insulin; Z79.899 Other long term (current) drug therapy; Z87.820 Personal history of traumatic brain injury; Z79.82 Long term (current) use of aspirin; Z88.0 Allergy status to penicillin
CPT/HCPCS: 36415; 73560-26-RT; 73560-RT; 82947; 85027; 97110-GP; 97116-GP; 97162-GP; 97530-GP; 97535-GP; A9270-GY; C1713; C1776; J0690; J1815-GY; J1885; J2250; J2704; J3010; J3490; J7030; J7120

== ENCOUNTER 2023-07-10 02:39 | Emergency (ER) | payer OTHER ==
[2023-07-10] MEDS ORDERED: Levofloxacin/Dextrose 5%-Water 750 MG in Premix Bag 1 BAG IV ONE (03:11)
[2023-07-10] MEDS ORDERED: Sodium Chloride 0.9% 1,000 ML IV SCH ×2 (03:15→04:45)
[2023-07-10 03:22] LABS: BASOPHILS ABSOLUTE AUTO 0.09 K/uL (0.00-0.10); BASOPHILS PERCENT AUTO 0.5 % (0.1-1.3); EOSINOPHILS PERCENT AUTO 0.1 % (0.0-5.4); HEMATOCRIT 44.9 % (38.4-49.7); HEMOGLOBIN 15.2 g/dL (12.9-16.9); IMMATURE GRAN ABSOLUTE AUTO 0.16 K/uL (0.00-0.23); IMMATURE GRAN PERCENT AUTO 0.8 % (0.0-0.7); LYMPHOCYTES ABSOLUTE AUTO 0.46 K/uL (0.8-3.3); LYMPHOCYTES PERCENT AUTO 2.3 % (11.4-47.7); MEAN CORPUSCULAR HGB CONC 33.9 g/dL (31.6-35.5); MEAN CORPUSCULAR VOLUME 85.7 fL (81.4-99.0); MONOCYTES ABSOLUTE AUTO 1.37 K/uL (0.20-0.90); NEUTROPHILS PERCENT AUTO 89.3 % (40.0-78.1); PLATELET COUNT,PLT 197 K/uL (130-375); RED BLOOD CELL COUNT 5.24 M/uL (4.14-5.76); WHITE BLOOD CELL COUNT,WBC 19.7 K/uL (3.2-11.0)
[2023-07-10 03:24] LABS: EOSINOPHILS ABSOLUTE AUTO 0.02 K/uL (0.00-0.40)
[2023-07-10 03:29] LABS: CORONAVIRUS COVID-19 NAA NEGATIVE (NEGATIVE); INFLUENZA A NAA NEGATIVE (NEGATIVE); INFLUENZA B NAA NEGATIVE (NEGATIVE); RESPIRATORY SYNCYTIAL VIR NAA NEGATIVE (NEGATIVE)
[2023-07-10] MEDS ORDERED: Acetaminophen 325 MG Tab PO ONE (03:49)
[2023-07-10 04:11] LABS: APPEARANCE,URINE CLEAR (CLEAR); BILIRUBIN,URINE NEGATIVE (NEGATIVE); COLOR,URINE YELLOW (YELLOW); GLUCOSE,URINE 500 mg/dL (NEGATIVE); KETONES,URINE NEGATIVE (NEGATIVE); LEUKOCYTE ESTERASE,URINE NEGATIVE (NEGATIVE); NITRITE,URINE NEGATIVE (NEGATIVE); OCCULT BLOOD,URINE TRACE-INTACT (NEGATIVE); PH,URINE 5.5 (5.0-8.0); PROTEIN,URINE 30 mg/dL (NEGATIVE); UROBILINOGEN,URINE 0.2 EU/dL (0.2-1.0)
[2023-07-10 04:20] LABS: CREATININE 1.8 mg/dL (0.8-1.3)
[2023-07-10 04:20] LABS: AMORPHOUS SEDIMENT,URINE NOT SEEN; BACTERIA,URINE FEW; EPITHELIAL CELLS,URINE NOT SEEN; MUCUS,URINE NOT SEEN; RBC,URINE 0-5 (0-5); WBC,URINE 0-5 (0-5)
== END 2023-07-10 06:50 ==
LOC: JP.ED 02:39
DX: J18.9 Pneumonia, unspecified organism (principal); Z20.822 Contact with and (suspected) exposure to COVID-19; E78.00 Pure hypercholesterolemia, unspecified; I10 Essential (primary) hypertension; E11.9 Type 2 diabetes mellitus without complications; Z88.0 Allergy status to penicillin
CPT/HCPCS: 0241U; 36415; 71045; 81001; 82565; 83605; 84145; 84484; 85025; 87040; 93005; 96365; 99285; A9270; J1956; J7030; 93010; 99284

== ENCOUNTER 2023-08-22 11:07 | Emergency (ER) | payer OTHER ==
[2023-08-22 12:42] LABS: AMORPHOUS SEDIMENT,URINE NOT SEEN; APPEARANCE,URINE TURBID (CLEAR); BACTERIA,URINE FEW; BILIRUBIN,URINE NEGATIVE (NEGATIVE); COLOR,URINE RED (YELLOW); EPITHELIAL CELLS,URINE NOT SEEN; GLUCOSE,URINE 500 mg/dL (NEGATIVE); KETONES,URINE NEGATIVE (NEGATIVE); LEUKOCYTE ESTERASE,URINE NEGATIVE (NEGATIVE); MUCUS,URINE NOT SEEN; NITRITE,URINE NEGATIVE (NEGATIVE); OCCULT BLOOD,URINE LARGE (NEGATIVE); PROTEIN,URINE >=300 mg/dL (NEGATIVE); RBC,URINE PACKED (0-5); UROBILINOGEN,URINE 0.2 EU/dL (0.2-1.0)
[2023-08-22 13:08] LABS: BASOPHILS ABSOLUTE AUTO 0.09 K/uL (0.00-0.10); BASOPHILS PERCENT AUTO 0.7 % (0.1-1.3); EOSINOPHILS ABSOLUTE AUTO 0.37 K/uL (0.00-0.40); EOSINOPHILS PERCENT AUTO 2.7 % (0.0-5.4); HEMATOCRIT 42.1 % (38.4-49.7); HEMOGLOBIN 13.9 g/dL (12.9-16.9); IMMATURE GRAN ABSOLUTE AUTO 0.23 K/uL (0.00-0.23); IMMATURE GRAN PERCENT AUTO 1.7 % (0.0-0.7); LYMPHOCYTES ABSOLUTE AUTO 1.25 K/uL (0.8-3.3); LYMPHOCYTES PERCENT AUTO 9.1 % (11.4-47.7); MEAN CORPUSCULAR HEMOGLOBIN 28.5 pg (31.6-35.5); MEAN CORPUSCULAR VOLUME 86.3 fL (81.4-99.0); MONOCYTES ABSOLUTE AUTO 0.76 K/uL (0.20-0.90); MONOCYTES PERCENT AUTO 5.5 % (3.3-12.6); NEUTROPHILS ABSOLUTE AUTO 11.07 K/uL (1.0-7.6); NEUTROPHILS PERCENT AUTO 80.3 % (40.0-78.1); PLATELET COUNT,PLT 227 K/uL (130-375); RED BLOOD CELL COUNT 4.88 M/uL (4.14-5.76); WHITE BLOOD CELL COUNT,WBC 13.8 K/uL (3.2-11.0)
== END 2023-08-22 14:09 | disposition home or self-care (01) ==
LOC: JP.ED 11:07
DX: R31.0 Gross hematuria (principal); I48.91 Unspecified atrial fibrillation; I10 Essential (primary) hypertension; E78.00 Pure hypercholesterolemia, unspecified; E11.9 Type 2 diabetes mellitus without complications; E66.9 Obesity, unspecified; Z68.39 Body mass index [BMI] 39.0-39.9, adult; Z79.01 Long term (current) use of anticoagulants; Z79.82 Long term (current) use of aspirin; Z85.46 Personal history of malignant neoplasm of prostate; Z88.0 Allergy status to penicillin; Z88.8 Allergy status to other drugs, medicaments and biological substances; Z79.899 Other long term (current) drug therapy; Z79.51 Long term (current) use of inhaled steroids; Z79.4 Long term (current) use of insulin; Z79.84 Long term (current) use of oral hypoglycemic drugs
CPT/HCPCS: 36415; 81001; 85025; 87086; 99283

== ENCOUNTER 2024-08-07 16:28 | Emergency (ER) | payer OTHER ==
[2024-08-07 18:25] LABS: BASOPHILS ABSOLUTE AUTO 0.06 K/uL (0.00-0.10); BASOPHILS PERCENT AUTO 0.7 % (0.1-1.3); EOSINOPHILS ABSOLUTE AUTO 0.04 K/uL (0.00-0.40); EOSINOPHILS PERCENT AUTO 0.4 % (0.0-5.4); HEMATOCRIT 36.7 % (38.4-49.7); HEMOGLOBIN 12.4 g/dL (12.9-16.9); IMMATURE GRAN ABSOLUTE AUTO 0.11 K/uL (0.00-0.23); IMMATURE GRAN PERCENT AUTO 1.2 % (0.0-0.7); LYMPHOCYTES ABSOLUTE AUTO 0.44 K/uL (0.8-3.3); LYMPHOCYTES PERCENT AUTO 4.9 % (11.4-47.7); MEAN CORPUSCULAR HEMOGLOBIN 29.8 pg (31.6-35.5); MEAN CORPUSCULAR HGB CONC 33.8 g/dL (31.6-35.5); MEAN CORPUSCULAR VOLUME 88.2 fL (81.4-99.0); MONOCYTES ABSOLUTE AUTO 0.96 K/uL (0.20-0.90); MONOCYTES PERCENT AUTO 10.7 % (3.3-12.6); NEUTROPHILS ABSOLUTE AUTO 7.36 K/uL (1.0-7.6); NEUTROPHILS PERCENT AUTO 82.1 % (40.0-78.1); PLATELET COUNT,PLT 169 K/uL (130-375); RED BLOOD CELL COUNT 4.16 M/uL (4.14-5.76)
[2024-08-07 18:39] LABS: CORONAVIRUS COVID-19 NAA NEGATIVE (NEGATIVE); INFLUENZA A NAA NEGATIVE (NEGATIVE); INFLUENZA B NAA NEGATIVE (NEGATIVE); RESPIRATORY SYNCYTIAL VIR NAA NEGATIVE (NEGATIVE)
[2024-08-07 18:50] LABS: ANION GAP 16.7 mmol/L (5.0-14.0); CALCIUM 9.5 mg/dL (8.5-10.1); CREATININE 3.1 mg/dL (0.8-1.3); EST CRCL DRUG DOSING (CG) 21.76 mL/min; MAGNESIUM 1.8 mg/dL (1.8-2.4); POTASSIUM,K 3.7 mmol/L (3.6-5.2)
[2024-08-07] MEDS: Acetaminophen 500 MG Tab PO ONE (20:39)
[2024-08-07 21:07] LABS: APPEARANCE,URINE SLIGHTLY CLOUDY (CLEAR); BILIRUBIN,URINE NEGATIVE (NEGATIVE); COLOR,URINE YELLOW (YELLOW); GLUCOSE,URINE NEGATIVE (NEGATIVE); KETONES,URINE NEGATIVE (NEGATIVE); LEUKOCYTE ESTERASE,URINE NEGATIVE (NEGATIVE); NITRITE,URINE NEGATIVE (NEGATIVE); OCCULT BLOOD,URINE TRACE-LYSED (NEGATIVE); PH,URINE 5.5 (5.0-8.0); PROTEIN,URINE 100 mg/dL (NEGATIVE); UROBILINOGEN,URINE 0.2 EU/dL (0.2-1.0)
[2024-08-07 21:13] LABS: AMORPHOUS SEDIMENT,URINE NOT SEEN; BACTERIA,URINE NOT SEEN; EPITHELIAL CELLS,URINE FEW; MUCUS,URINE FEW; RBC,URINE 0-5 (0-5); WBC,URINE 0-5 (0-5)
[2024-08-07] MEDS: Sodium Chloride 0.9% 1,000 ML IV ONE ×2 (21:50→23:11)
== END 2024-08-08 00:59 | disposition home or self-care (01) ==
LOC: JP.ED 16:28
DX: E86.0 Dehydration (principal); B34.9 Viral infection, unspecified; I48.91 Unspecified atrial fibrillation; J44.9 Chronic obstructive pulmonary disease, unspecified; E11.9 Type 2 diabetes mellitus without complications; E66.9 Obesity, unspecified; Z68.37 Body mass index [BMI] 37.0-37.9, adult; Z88.0 Allergy status to penicillin; Z88.8 Allergy status to other drugs, medicaments and biological substances; Z79.84 Long term (current) use of oral hypoglycemic drugs; Z79.4 Long term (current) use of insulin; Z79.01 Long term (current) use of anticoagulants; Z79.51 Long term (current) use of inhaled steroids; Z79.82 Long term (current) use of aspirin; Z79.899 Other long term (current) drug therapy
CPT/HCPCS: 0241U; 36415; 71045; 80048; 81001; 83735; 84484; 85025; 93005; 96360; 96361; 99285; A9270; J7030

== ENCOUNTER 2024-08-08 13:54 | Emergency (ER) | payer OTHER ==
[2024-08-08] MEDS: Sodium Chloride 0.9% 1,000 ML IV ONE ×2 (14:44→20:10)
[2024-08-08] MEDS: Sodium Chloride 0.9% 10 ML Syringe FLUSH PRN (14:45)
[2024-08-08 15:20] LABS: BASOPHILS ABSOLUTE AUTO 0.04 K/uL (0.00-0.10); BASOPHILS PERCENT AUTO 0.4 % (0.1-1.3); EOSINOPHILS PERCENT AUTO 0.2 % (0.0-5.4); HEMATOCRIT 32.8 % (38.4-49.7); HEMOGLOBIN 11.1 g/dL (12.9-16.9); IMMATURE GRAN ABSOLUTE AUTO 0.09 K/uL (0.00-0.23); LYMPHOCYTES ABSOLUTE AUTO 0.63 K/uL (0.8-3.3); LYMPHOCYTES PERCENT AUTO 6.9 % (11.4-47.7); MEAN CORPUSCULAR HEMOGLOBIN 30.3 pg (31.6-35.5); MEAN CORPUSCULAR HGB CONC 33.8 g/dL (31.6-35.5); MEAN CORPUSCULAR VOLUME 89.6 fL (81.4-99.0); MONOCYTES ABSOLUTE AUTO 1.05 K/uL (0.20-0.90); MONOCYTES PERCENT AUTO 11.5 % (3.3-12.6); NEUTROPHILS ABSOLUTE AUTO 7.33 K/uL (1.0-7.6); PLATELET COUNT,PLT 136 K/uL (130-375); RED BLOOD CELL COUNT 3.66 M/uL (4.14-5.76); WHITE BLOOD CELL COUNT,WBC 9.2 K/uL (3.2-11.0)
[2024-08-08 15:21] LABS: EOSINOPHILS ABSOLUTE AUTO 0.02 K/uL (0.00-0.40)
[2024-08-08 15:40] LABS: A/G RATIO 0.9 (1.2-2.2); ALANINE AMINOTRANSFERASE,ALT 48 U/L (12-78); ALBUMIN 3.5 g/dL (3.4-5.0); ALKALINE PHOSPHATASE 67 U/L (46-116); ASPARTATE AMNIOTRANSFERASE,AST 56 U/L (15-37); BILIRUBIN TOTAL 0.7 mg/dL (0.2-1.0); BLOOD UREA NITROGEN,BUN 37 mg/dL (7-18); C-REACTIVE PROTEIN 5.05 mg/dL (<0.50); CALCIUM 8.5 mg/dL (8.5-10.1); CARBON DIOXIDE,CO2 28 mmol/L (21-32); CHLORIDE,CL 98 mmol/L (100-108); EST CRCL DRUG DOSING (CG) 22.48 mL/min; ESTIMATED GFR 22 mL/min (>60); GLUCOSE RANDOM 165 mg/dL (74-106); POTASSIUM,K 4.4 mmol/L (3.6-5.2); PROTEIN TOTAL,TP 7.5 g/dL (6.4-8.2); SODIUM,NA 136 mmol/L (140-148)
[2024-08-08 15:41] LABS: ANION GAP 14.4 mmol/L (5.0-14.0)
[2024-08-08 15:43] LABS: LACTIC ACID 1.2 mmol/L (0.4-2.0)
[2024-08-08 17:00] LABS: APPEARANCE,URINE CLEAR (CLEAR); BILIRUBIN,URINE NEGATIVE (NEGATIVE); COLOR,URINE YELLOW (YELLOW); GLUCOSE,URINE NEGATIVE (NEGATIVE); KETONES,URINE NEGATIVE (NEGATIVE); LEUKOCYTE ESTERASE,URINE NEGATIVE (NEGATIVE); NITRITE,URINE NEGATIVE (NEGATIVE); OCCULT BLOOD,URINE TRACE-INTACT (NEGATIVE); PROTEIN,URINE 100 mg/dL (NEGATIVE); UROBILINOGEN,URINE 0.2 EU/dL (0.2-1.0)
[2024-08-08 17:13] LABS: EPITHELIAL CELLS,URINE RARE; RBC,URINE 0-5 (0-5); WBC,URINE 0-5 (0-5)
[2024-08-08 17:14] LABS: AMORPHOUS SEDIMENT,URINE NOT SEEN; BACTERIA,URINE NOT SEEN; MUCUS,URINE NOT SEEN
[2024-08-08] MEDS: methylPREDNISolone Sodium Succinate 125 MG/2 ML SDV IVPUSH ONE (18:57)
[2024-08-08] MEDS: Acetaminophen 500 MG Tab PO ONE (20:10)
== END 2024-08-08 23:40 | disposition home or self-care (01) ==
LOC: JP.ED 13:54
DX: J40 Bronchitis, not specified as acute or chronic (principal); R53.1 Weakness; I48.91 Unspecified atrial fibrillation; J44.9 Chronic obstructive pulmonary disease, unspecified; E11.9 Type 2 diabetes mellitus without complications; Z88.8 Allergy status to other drugs, medicaments and biological substances; Z79.899 Other long term (current) drug therapy; Z79.84 Long term (current) use of oral hypoglycemic drugs; Z79.4 Long term (current) use of insulin; Z79.82 Long term (current) use of aspirin
CPT/HCPCS: 36415; 71250; 74176; 80053; 81001; 83605; 84145; 85025; 86140; 87040; 87428; 96361; 96374; 99285; A9270; J2919; J7030; 99284

== ENCOUNTER 2024-11-09 07:25 | Day surgery (SDC) | payer OTHER ==
[~2024-11-09 07:25] MED LIST: Midazolam 1 MG/ML 2 ML SDV ONE; Propofol 200 MG/20 ML SDV ONE; fentaNYL 100 MCG/2 ML SDV ONE
[2024-11-09] MEDS: Lactated Ringers 1,000 ML IV SCH (07:47)
== END 2024-11-09 08:15 | disposition home or self-care (01) ==
LOC: JP.SDS 07:25
PROVIDERS: ATTEND Family Medicine
DX: Z53.8 Procedure and treatment not carried out for other reasons (principal)
CPT/HCPCS: J2250; J2704; J3010; J7120

== ENCOUNTER 2024-11-16 07:59 | Day surgery (SDC) | payer OTHER ==
[2024-11-16] MEDS: Lactated Ringers 1,000 ML IV SCH (09:08)
== END 2024-11-16 12:20 | disposition home or self-care (01) ==
LOC: JP.SDS 07:59
PROVIDERS: ATTEND Family Medicine
DX: Z12.11 Encounter for screening for malignant neoplasm of colon (principal); D12.3 Benign neoplasm of transverse colon; D12.4 Benign neoplasm of descending colon; R19.5 Other fecal abnormalities; E11.22 Type 2 diabetes mellitus with diabetic chronic kidney disease; N18.9 Chronic kidney disease, unspecified; I48.91 Unspecified atrial fibrillation
CPT/HCPCS: 00811; 45380; 88305; J2250; J2704; J3010; J7120

== ENCOUNTER 2024-12-04 20:42 | Inpatient (IN) | payer OTHER ==
[2024-12-04] MEDS ORDERED: Sodium Chloride 0.9% 10 ML Syringe FLUSH PRN (20:59)
[2024-12-04 21:23] LABS: BASOPHILS ABSOLUTE AUTO 0.04 K/uL (0.00-0.10); BASOPHILS PERCENT AUTO 0.3 % (0.1-1.3); EOSINOPHILS ABSOLUTE AUTO 0.33 K/uL (0.00-0.40); EOSINOPHILS PERCENT AUTO 2.4 % (0.0-5.4); HEMOGLOBIN 12.7 g/dL (12.9-16.9); IMMATURE GRAN PERCENT AUTO 0.7 % (0.0-0.7); LYMPHOCYTES PERCENT AUTO 5.2 % (11.4-47.7); MEAN CORPUSCULAR HEMOGLOBIN 29.9 pg (31.6-35.5); MEAN CORPUSCULAR HGB CONC 33.4 g/dL (31.6-35.5); MEAN CORPUSCULAR VOLUME 89.4 fL (81.4-99.0); MONOCYTES ABSOLUTE AUTO 0.96 K/uL (0.20-0.90); MONOCYTES PERCENT AUTO 7.1 % (3.3-12.6); NEUTROPHILS PERCENT AUTO 84.3 % (40.0-78.1); PLATELET COUNT,PLT 177 K/uL (130-375); RED BLOOD CELL COUNT 4.25 M/uL (4.14-5.76); WHITE BLOOD CELL COUNT,WBC 13.5 K/uL (3.2-11.0)
[2024-12-04] MEDS: cefTRIAXone 1 GM in Sodium Chloride 0.9% 50 ML IV ONE (21:30)
[2024-12-04 21:44] LABS: ALANINE AMINOTRANSFERASE,ALT 20 U/L (12-78); ALBUMIN 3.6 g/dL (3.4-5.0); ALKALINE PHOSPHATASE 84 U/L (46-116); ASPARTATE AMNIOTRANSFERASE,AST 13 U/L (15-37); BILIRUBIN TOTAL 1.1 mg/dL (0.2-1.0); BLOOD UREA NITROGEN,BUN 37 mg/dL (7-18); CALCIUM 9.1 mg/dL (8.5-10.1); CARBON DIOXIDE,CO2 27 mmol/L (21-32); CHLORIDE,CL 97 mmol/L (100-108); CREATININE 2.5 mg/dL (0.8-1.3); ESTIMATED GFR 27 mL/min (>60); GLUCOSE RANDOM 265 mg/dL (74-106); POTASSIUM,K 3.8 mmol/L (3.6-5.2); PROTEIN TOTAL,TP 7.2 g/dL (6.4-8.2); SODIUM,NA 135 mmol/L (140-148)
[2024-12-04 21:45] LABS: ANION GAP 14.8 mmol/L (5.0-14.0)
[2024-12-04 21:53] LABS: TROPONIN I HIGH SENSITIVITY 11.8 pg/mL (<=60.3)
[2024-12-04] MEDS: Sodium Chloride 0.9% 250 ML IV SCH (23:28)
[2024-12-05 00:52] LABS: APPEARANCE,URINE CLEAR (CLEAR); BILIRUBIN,URINE NEGATIVE (NEGATIVE); COLOR,URINE YELLOW (YELLOW); GLUCOSE,URINE >=1000 mg/dL (NEGATIVE); KETONES,URINE NEGATIVE (NEGATIVE); LEUKOCYTE ESTERASE,URINE NEGATIVE (NEGATIVE); NITRITE,URINE NEGATIVE (NEGATIVE); OCCULT BLOOD,URINE TRACE-LYSED (NEGATIVE); PH,URINE 5.5 (5.0-8.0); PROTEIN,URINE 30 mg/dL (NEGATIVE); UROBILINOGEN,URINE 0.2 EU/dL (0.2-1.0)
[2024-12-05 00:55] LABS: RBC,URINE 0-5 (0-5)
[2024-12-05 00:56] LABS: AMORPHOUS SEDIMENT,URINE NOT SEEN; BACTERIA,URINE RARE; EPITHELIAL CELLS,URINE FEW; MUCUS,URINE NOT SEEN; WBC,URINE 0-5 (0-5)
[2024-12-05] MEDS ORDERED: Ondansetron 4 MG/2 ML SDV IV PRN (01:30)
[2024-12-05] MEDS ORDERED: Melatonin 3 MG Tab PO PRN (01:30)
[2024-12-05] MEDS ORDERED: Ondansetron 4 MG Tab.DIS PO PRN (01:30)
[2024-12-05] MEDS: Bisacodyl 5 MG Tab PO ONE (02:18)
[2024-12-05] MEDS: Acetaminophen 325 MG Tab PO PRN (02:19)
[2024-12-05 05:54] LABS: HEMATOCRIT 36.8 % (38.4-49.7); HEMOGLOBIN 12.4 g/dL (12.9-16.9); MEAN CORPUSCULAR HEMOGLOBIN 30.1 pg (31.6-35.5); MEAN CORPUSCULAR HGB CONC 33.7 g/dL (31.6-35.5); MEAN CORPUSCULAR VOLUME 89.3 fL (81.4-99.0); RED BLOOD CELL COUNT 4.12 M/uL (4.14-5.76); WHITE BLOOD CELL COUNT,WBC 11.9 K/uL (3.2-11.0)
[2024-12-05 06:03] LABS: CALCIUM 8.9 mg/dL (8.5-10.1); CREATININE 2.3 mg/dL (0.8-1.3); EST CRCL DRUG DOSING (CG) 29.33 mL/min; POTASSIUM,K 3.5 mmol/L (3.6-5.2)
[2024-12-05 06:04] LABS: ANION GAP 12.5 mmol/L (5.0-14.0)
[2024-12-05] MEDS: Pantoprazole 40 MG Tab.CR PO SCH (07:45)
[2024-12-05] MEDS: Lactobacillus Rhamnosus GG (Probiotic) Cap PO SCH (08:24)
[2024-12-05] MEDS: Insulin Lispro 100 Unit/ML 3 ML KwikPen SUBCUT SCH ×4 (08:24→17:09)
[2024-12-05] MEDS: Polyethylene Glycol 3350 Powder 17 GM Packet PO SCH (08:24)
[2024-12-05] MEDS: Triamcinolone Acetonide 0.1% Crm 15 GM Tube TOP SCH (08:24)
[2024-12-05] MEDS: Sennosides/Docusate Sodium 50-8.6 MG Tab PO PRN (08:27)
[2024-12-05] MEDS: Rosuvastatin 10 MG Tab PO SCH (09:11)
[2024-12-05] MEDS: Sertraline 50 MG Tab PO SCH (09:11)
[2024-12-05] MEDS: Allopurinol 100 MG Tab PO SCH (09:11)
[2024-12-05] MEDS: Trospium 20 MG Tab PO SCH (09:12)
[2024-12-05] MEDS: Aspirin 81 MG Tab.Chew PO SCH (09:12)
[2024-12-05] MEDS: Potassium Chloride 20 MEQ Tab.ER PO ONE (09:12)
[2024-12-05] MEDS: Gabapentin 400 MG Cap PO SCH (09:12)
[2024-12-05] MEDS: cefTRIAXone 2 GM in Sodium Chloride 0.9% 50 ML IV SCH (13:18)
[2024-12-05] MEDS: predniSONE 20 MG Tab PO ONE (13:19)
[2024-12-05] MEDS ORDERED: Rivaroxaban 10 MG Tab PO SCH (17:00)
[2024-12-05] MEDS: Rivaroxaban 15 MG Tab PO SCH (17:08)
[2024-12-05] MEDS: ARIPiprazole 10 MG Tab PO SCH (20:06)
[2024-12-05] MEDS: Insulin Glargine,Human Rec. Analog 100 Units/ML 3 ML Pen SUBCUT SCH (20:06)
[2024-12-05] MEDS: Metoprolol Succinate 25 MG Tab.ER PO SCH (20:08)
[2024-12-05] MEDS ORDERED: cefTRIAXone 1 GM in Sodium Chloride 0.9% 50 ML IV SCH (21:00)
[2024-12-06 05:53] LABS: HEMATOCRIT 37.6 % (38.4-49.7); HEMOGLOBIN 12.4 g/dL (12.9-16.9); MEAN CORPUSCULAR HEMOGLOBIN 29.5 pg (31.6-35.5); MEAN CORPUSCULAR VOLUME 89.5 fL (81.4-99.0); RED BLOOD CELL COUNT 4.2 M/uL (4.14-5.76); WHITE BLOOD CELL COUNT,WBC 13.3 K/uL (3.2-11.0)
[2024-12-06 06:08] LABS: CALCIUM 9.4 mg/dL (8.5-10.1); CREATININE 2.2 mg/dL (0.8-1.3); EST CRCL DRUG DOSING (CG) 30.66 mL/min; POTASSIUM,K 4.3 mmol/L (3.6-5.2)
[2024-12-06 06:09] LABS: ANION GAP 14.3 mmol/L (5.0-14.0)
[2024-12-06] MEDS: predniSONE 20 MG Tab PO SCH (08:15)
[2024-12-06] MEDS: Magnesium Hydroxide 400 MG/5 ML Susp 30 ML Cup PO PRN (08:19)
[2024-12-07 06:07] LABS: BASOPHILS ABSOLUTE AUTO 0.05 K/uL (0.00-0.10); BASOPHILS PERCENT AUTO 0.4 % (0.1-1.3); EOSINOPHILS ABSOLUTE AUTO 0.16 K/uL (0.00-0.40); EOSINOPHILS PERCENT AUTO 1.2 % (0.0-5.4); HEMATOCRIT 33.9 % (38.4-49.7); HEMOGLOBIN 11.3 g/dL (12.9-16.9); IMMATURE GRAN ABSOLUTE AUTO 0.15 K/uL (0.00-0.23); IMMATURE GRAN PERCENT AUTO 1.1 % (0.0-0.7); LYMPHOCYTES ABSOLUTE AUTO 1.17 K/uL (0.8-3.3); LYMPHOCYTES PERCENT AUTO 8.6 % (11.4-47.7); MEAN CORPUSCULAR HEMOGLOBIN 29.6 pg (31.6-35.5); MEAN CORPUSCULAR HGB CONC 33.3 g/dL (31.6-35.5); MEAN CORPUSCULAR VOLUME 88.7 fL (81.4-99.0); MONOCYTES ABSOLUTE AUTO 0.97 K/uL (0.20-0.90); MONOCYTES PERCENT AUTO 7.1 % (3.3-12.6); NEUTROPHILS ABSOLUTE AUTO 11.11 K/uL (1.0-7.6); NEUTROPHILS PERCENT AUTO 81.6 % (40.0-78.1); PLATELET COUNT,PLT 196 K/uL (130-375); RED BLOOD CELL COUNT 3.82 M/uL (4.14-5.76); WHITE BLOOD CELL COUNT,WBC 13.6 K/uL (3.2-11.0)
[2024-12-07 06:23] LABS: CALCIUM 9.1 mg/dL (8.5-10.1); CREATININE 2.2 mg/dL (0.8-1.3); EST CRCL DRUG DOSING (CG) 30.66 mL/min
== END 2024-12-07 11:30 | disposition home or self-care (01) | DRG 871 ==
LOC: JP.ED 20:42 → JP.MS 12-05 01:18
PROVIDERS: ADMIT Registered Nurse; ATTEND Internal Medicine
DX: A41.9 Sepsis, unspecified organism (principal); G93.41 Metabolic encephalopathy; L03.113 Cellulitis of right upper limb; N18.4 Chronic kidney disease, stage 4 (severe); I48.20 Chronic atrial fibrillation, unspecified; L03.114 Cellulitis of left upper limb; N18.32 Chronic kidney disease, stage 3b; Z66 Do not resuscitate; H91.90 Unspecified hearing loss, unspecified ear; I13.0 Hypertensive heart and chronic kidney disease with heart failure and stage 1 through stage 4 chronic kidney disease, or unspecified chronic kidney disease; I50.9 Heart failure, unspecified; E78.00 Pure hypercholesterolemia, unspecified; J44.9 Chronic obstructive pulmonary disease, unspecified; G47.30 Sleep apnea, unspecified; K59.09 Other constipation; F32.A Depression, unspecified; R65.20 Severe sepsis without septic shock; L23.7 Allergic contact dermatitis due to plants, except food; E66.9 Obesity, unspecified; Z96.659 Presence of unspecified artificial knee joint; E11.22 Type 2 diabetes mellitus with diabetic chronic kidney disease; Z88.0 Allergy status to penicillin; Z88.1 Allergy status to other antibiotic agents; Z85.46 Personal history of malignant neoplasm of prostate; Z98.890 Other specified postprocedural states; Z88.8 Allergy status to other drugs, medicaments and biological substances; Z86.0100 Personal history of colon polyps, unspecified; Z87.81 Personal history of (healed) traumatic fracture; Z79.899 Other long term (current) drug therapy; Z79.84 Long term (current) use of oral hypoglycemic drugs; Z79.4 Long term (current) use of insulin; Z79.01 Long term (current) use of anticoagulants; Z79.52 Long term (current) use of systemic steroids; Z79.82 Long term (current) use of aspirin; Z68.38 Body mass index [BMI] 38.0-38.9, adult
CPT/HCPCS: 36415; 71046 ×2; 80053; 81001; 83605; 83880; 84484; 85025; 93005; 96361; 96365; 99285; J0696; J7050; 80048; 82947; 85027; 87040; 93010; 97161-GP; 97530-GP; 99223; 99232; 99238; A9270-GY; J1815; J1815-GY; J7512